=== PATIENT | male | born 1970 | race Caucasian/White ===

== ENCOUNTER 2016-05-01 18:05 | Inpatient (IN) ==
[2016-05-01 18:30] LABS: MANUAL DIFF NEEDED? NO
[2016-05-01 18:34] LABS: BASO% 0.2 % (0.0-0.8); EOS# 0.15 X1000 (0.0-0.7); EOS% 1.2 % (0.0-10.0); HEMATOCRIT 46.8 % (42.0-52.0); HEMOGLOBIN 16.1 g/dL (14.0-18.0); IMM GRAN# 0.04 X1000 (0.0-0.04); IMM GRAN% 0.3 % (0.0-0.5); LYMPH# 1.01 X1000 (1.2-3.4); LYMPH% 8.2 % (20.5-51.1); MCHC 34.4 g/dL (33-37); MCV 90.2 FL (81-99); MONO# 1.31 X1000 (0.11-0.59); MONO% 10.6 % (1.7-9.3); MPV 11.8 FL (7.4-10.4); NEUT% 79.5 % (42.2-75.2); PLT 209 X1000 (130-400); RBC 5.19 XMIL (4.7-6.1)
[2016-05-01 18:41] LABS: INR 1.01; PROTIME 10.7 Seconds (9.2-11.7)
[2016-05-01 18:43] LABS: PTT 42.4 Seconds (22.0-36.0)
[2016-05-01 18:57] LABS: AGAP 14; ALBUMIN 3.7 g/dL (3.5-5.0); ALKALINE PHOSPHATASE 158 U/L (32-122); BUN 10 mg/dL (8-22); CALCIUM 8.7 mg/dL (8.8-10.2); CHLORIDE 99 mmol/L (98-107); CK PROFILE 23 U/L (24-204); COSMO 275; GOT 93 U/L (10-34); GPT 314 U/L (10-44); MAGNESIUM 2.1 mg/dL (1.5-2.7); POTASSIUM 3.4 mmol/L (3.5-5.1); SODIUM 137 mmol/L (136-145); TCO2 24 mmol/L (25-35); TOTAL BILIRUBIN 4.39 mg/dL (0.20-1.00); TOTAL PROTEIN 7.3 g/dL (6.3-8.3)
--- NOTE | 2016-05-01 19:59 | PROVIDER DOCUMENTATION ---
HPI-General Adult <Bob DengSondra - Last Filed: 05/01/16 23:14> - General Source: patient - History of Present Illness -Gen Adult Nature of Presenting Problems: 46 year old M presents to the ED with a cc of fever, body aches, jaundice, cough , and congestion x1 week. Pt also c/o minimal shortness of breath. PT states that he has not been seen by anyones. 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 Location of Pain/Injury: reports: generalized Pain Radiation: reports: no radiation Quality of Pain: reports: aching Severity: reports: mild Onset/Duration: reports: 1 week ago Timing: reports: still present Context/Activities at Onset: reports: none Modifying Factors: improves with: nothing Associated Symptoms: reports: cough, muscle aches, sinus congestion/drainage, shortness of breath <Stephanie Drake - Last Filed: 05/02/16 01:08> - General Chief Complaint: Shortness of Breath Stated Complaint: FEVER, SOB Time Seen by Provider: 05/01/16 19:23 Allergies/Adverse Reactions: Patient Allergies Allergy/AdvReac Type Severity Reaction Status Date / Time No Known Allergies Allergy Verified 05/01/16 20:59 Home Medications: Home Medication List Medication Instructions Recorded Confirmed Last Taken Type Hydrocodone/APAP 10 mg/325 mg 0.5 tab PO DAILY 05/01/16 05/01/16 05/01/16 08:00 History [[place]-10] Loratadine/Pse E.r. 24 Hr 1 tab PO DAILY 05/01/16 05/01/16 05/01/16 08:00 History [[place]-D 24 Hr] Omeprazole [Prilosec] 20 mg PO DAILY 05/01/16 05/01/16 05/01/16 08:00 History Review of Systems - Adult - REVIEW OF SYSTEMS - ADULT Constitutional: reports: chills, fever Eyes: reports: no symptoms reported Ears, Nose, Mouth & Throat: reports: sinus problem. denies: ear pain, throat pain Cardiovascular: denies: chest pain, palpitations Respiratory: reports: cough. denies: shortness of breath Gastrointestinal: denies: nausea, vomiting Genitourinary: reports: no symptoms reported Musculoskeletal: reports: muscle aches. denies: muscle weakness Integumentary: denies: skin sores/ulcer, skin thickening Neurological: reports: no symptoms reported Psychiatric: reports: no symptoms reported Endocrine: reports: no symptoms reported Hematologic/Lymphatic: reports: no symptoms reported Allergic/Immunologic: reports: no symptoms reported All Other Systems: Reviewed and Negative <VidalStephanie - Last Filed: 05/02/16 01:08> Past History - Adult - PAST MEDICAL HISTORY-ADULT Review of Records: reports: Nursing Assessment Review, Medications Reviewed Major Childhood Illnesses: reports: denies history Other Conditions: reports: other cancer (skin) - PRIOR SURGERIES/PROCEDURES Surgical/Procedure History: reports: none - IMMUNIZATION STATUS Childhood Immunizations: See Nurse Assessment Flu Vaccine: See Nurse Assessment - SOCIAL HISTORY Smoking: non-smoker Substance Use: none/never Alcohol Use Frequency: occasionally (socially) <Stephanie Drake - Last Filed: 05/02/16 01:08> Physical Exam-General - PHYSICAL EXAM-ADULT Initial Vital Signs Reviewed: Yes - CONSTITUTIONAL General Appearance: alert - EYES Eyes: scleral icterus - HEAD, EARS, NOSE, MOUTH & THROAT HENMT: other (swelling of submadibular glands) - RESPIRATORY Respiratory: chest non-tender, lungs clear, normal breath sounds - CARDIOVASCULAR Cardiovascular: normal peripheral pulses, regular rate, rhythm, no edema - GASTROINTESTINAL (ABDOMEN) Abdominal Exam: normal bowel sounds, tenderness (RUQ), hepatomegaly. negative: spleenomegaly - MUSCULOSKELETAL Back Exam: normal inspection, no CVA tenderness, no vertebral tenderness Extremity: normal inspection, no pedal edema - SKIN Integumentary: jaundice, other (telangia ectasia to chest) - PSYCHIATRIC Psych/Mental Status: normal mood/affect, normal thought content, normal thought process, oriented x 3 <VidalStephanie - Last Filed: 05/02/16 01:08> Progress - PLAN OF CARE/RESULTS Progress/Plan/Lab Results: plan of care: labs, fluids, EKG, imaging Orders Category Date Time Status CHEST-2 VIEWS [RAD] Stat Exams 05/01/16 18:[address] ABD/PELVIS W/ IV CONT ONLY [CT] Stat Exams 05/01/16 19:53 Draft BLOOD CULTURE [BLDCUL] Stat Lab 05/01/16 22:35 Results CBC WITH ELECTRONIC DIFF [HEME] Stat Lab 05/01/16 18:22 Completed CK PROFILE [SP CHEM] Stat Lab 05/01/16 18:22 Completed COMPREHENSIVE METABOLIC PANEL [CHEM] Stat Lab 05/01/16 18:22 Completed D-DIMER [CHEM] Stat Lab 05/01/16 18:22 Completed MAGNESIUM [CHEM] Stat Lab 05/01/16 18:22 Completed PRO B-NATRIURETIC PEPTIDE Stat Lab 05/01/16 18:22 Completed PROTIME WITH INR [COAG] Stat Lab 05/01/16 18:22 Completed PTT [COAG] Stat Lab 05/01/16 18:22 Completed TROPONIN T Stat Lab 05/01/16 18:22 Completed UA NIMS W/REFLEX CULT [URINALYSIS] Stat Lab 05/01/16 20:31 Completed URINE CULTURE [RM] Routine Lab 05/01/16 21:00 Received 0.9% Sodium Chloride Inj [Ns] 1,000 ml Med 05/01/16 22:45 Active IV 250 mls/hr EKG [EKG] Stat Ther 05/01/16 18:12 Ordered Laboratory Tests 05/01/16 05/01/16 05/01/16 18:22 18:22 18:22 WBC 12.36 H RBC 5.19 Hgb 16.1 Hct 46.8 MCV 90.2 MCH 31.0 MCHC 34.4 RDW Std Deviation 13.5 Plt Count 209 MPV 11.8 H Immature Gran % (Auto) 0.3 Neut % (Auto) 79.5 H Lymph % (Auto) 8.2 L [place] % (Auto) 10.6 H Eos % (Auto) 1.2 Baso % (Auto) 0.2 Immature Gran # (Auto) 0.04 Neut # (Auto) 9.82 H Lymph # (Auto) 1.01 L [place] # (Auto) 1.31 H Eos # (Auto) 0.15 Baso # (Auto) 0.03 PT INR PTT (Actin FS) D-Dimer 1.50 H Sodium 137 Potassium 3.4 L Chloride 99 Carbon Dioxide 24 L Anion Gap 14 BUN 10 Creatinine 0.8 Estimated GFR/1.73 m2 > 60 BUN/Creatinine Ratio 13 Glucose 132 H Calculated Osmolality 275 Calcium 8.7 L Magnesium 2.1 Total Bilirubin 4.39 H AST 93 H ALT 314 H Alkaline Phosphatase 158 H Creatine Kinase 23 L Troponin T Hif-I-Ndkldpclaip Pept Total Protein 7.3 Albumin 3.7 Globulin 3.6 Albumin/Globulin Ratio 1.0 Urine Source Urine Color Urine Turbidity Urine pH Ur Specific [place] Urine Protein Ur Glucose (Stick) Ur Ketones (Stick) Urine Blood Urine Nitrite Urine Bilirubin Urobilinogen Dipstick Urine Leukocytes Urine WBC (Auto) Urine RBC (Auto) U Epithel Cells (Auto) Urine Bacteria (Auto) 05/01/16 05/01/16 05/01/16 18:22 18:22 18:22 WBC RBC Hgb Hct MCV MCH MCHC RDW Std Deviation Plt Count MPV Immature Gran % (Auto) Neut % (Auto) Lymph % (Auto) [place] % (Auto) Eos % (Auto) Baso % (Auto) Immature Gran # (Auto) Neut # (Auto) Lymph # (Auto) [place] # (Auto) Eos # (Auto) Baso # (Auto) PT 10.7 INR 1.01 PTT (Actin FS) 42.4 H D-Dimer Sodium Potassium Chloride Carbon Dioxide Anion Gap BUN Creatinine Estimated GFR/1.73 m2 BUN/Creatinine Ratio Glucose Calculated Osmolality Calcium Magnesium Total Bilirubin AST ALT Alkaline Phosphatase Creatine Kinase Troponin T < 0.010 Hiy-G-Mzffremfkoy Pept 112 Total Protein Albumin Globulin Albumin/Globulin Ratio Urine Source Urine Color Urine Turbidity Urine pH Ur Specific [place] Urine Protein Ur Glucose (Stick) Ur Ketones (Stick) Urine Blood Urine Nitrite Urine Bilirubin Urobilinogen Dipstick Urine Leukocytes Urine WBC (Auto) Urine RBC (Auto) U Epithel Cells (Auto) Urine Bacteria (Auto) 05/01/16 20:31 WBC RBC Hgb Hct MCV MCH MCHC RDW Std Deviation Plt Count MPV Immature Gran % (Auto) Neut % (Auto) Lymph % (Auto) [place] % (Auto) Eos % (Auto) Baso % (Auto) Immature Gran # (Auto) Neut # (Auto) Lymph # (Auto) [place] # (Auto) Eos # (Auto) Baso # (Auto) PT INR PTT (Actin FS) D-Dimer Sodium Potassium Chloride Carbon Dioxide Anion Gap BUN Creatinine Estimated GFR/1.73 m2 BUN/Creatinine Ratio Glucose Calculated Osmolality Calcium Magnesium Total Bilirubin AST ALT Alkaline Phosphatase Creatine Kinase Troponin T Nap-Q-Wneiznhnrdv Pept Total Protein Albumin Globulin Albumin/Globulin Ratio Urine Source CLEAN CATCH Urine Color YELLOW Urine Turbidity CLEAR Urine pH 6.5 Ur Specific [place] 1.015 Urine Protein 50 A Ur Glucose (Stick) NEGATIVE Ur Ketones (Stick) NEGATIVE Urine Blood NEGATIVE Urine Nitrite NEGATIVE Urine Bilirubin MODERATE A Urobilinogen Dipstick 4 A Urine Leukocytes SMALL A Urine WBC (Auto) 10-20 A Urine RBC (Auto) <10 U Epithel Cells (Auto) <10 Urine Bacteria (Auto) NEGATIVE Vital Signs - 24 hr 05/01/16 05/01/16 05/01/16 18:11 20:49 21:00 Temperature 100.1 F H Pulse Rate 97 H 92 H 86 Respiratory 18 22 18 Rate Blood Pressure 117/73 105/77 117/76 O2 Sat by Pulse 100 97 96 Oximetry 05/01/16 22:25 Temperature Pulse Rate 91 H Respiratory 17 Rate Blood Pressure 92/54 O2 Sat by Pulse 98 Oximetry Pt given results and will be d/c home w/o rx to follow up with PCP. Pt verbally understood instructions. PT remained clinically stable throughout the course of the ED stay and will return if symptoms worsen. - EKG 1 Time of EKG reading by physician:: 18:17 EKG Read and Signed by:: Bob Deng EKG Interpretation (*Must complete 3 of following elements*): Normal Rate: 93 Rhythm: NSR [place]: normal - XRAY 1 XRAY Study: Chest Impression: Abnormal XRAY Interpretation: basilar atelectasis, minimal cardiomegally: Dr. Deng- ER MD - CT/MRI 1 CT Study: Abdomen, Pelvis Impression: Abnormal (Stones and polyps within the gallbladder. Questionable mild adjacent inflammation. Normal CBD. Normal pancreas. Mildly fatty liver. No bowel obstruction. No abscess. No hydronephrosis. Small scattered mesenteric nodes.: Dr. Vasquez- radiologist.) - CONSULTS/PCP/HOSPITALIST Notification #1 *Consult/PCP/Hospitalist*: Dr. Corbin- hospitalist DMM Time Discussed: 22:33 Consult Disposition: Will see in ED, Admit <Stephanie Drake - Last Filed: 05/02/16 01:08> Departure - Departure Time of Disposition Order: 23:10 Certified Medical Emergency: Emergent <Bob Deng - Last Filed: 05/01/16 23:14> <Stephanie Drake - Last Filed: 05/02/16 01:08> - Departure DIAGNOSIS: Hepatitis Disposition: ADMITTED INPATIENT 09 Condition: Fair Referrals: None,PCP [Primary Care Provider] - Attestation - Scribe Verification/Attestation Scribe:: Stephanie Drake Acting as Scribe for:: Bob Deng Scribe documention review:: This chart was documented by a scribe and accurately reflects the service the provider performed and the decisions made by the provider. <Stephanie Drake - Last Filed: 05/02/16 01:08> Physician Attestation - Physician Attestation I, the provider, attest to the following statement:: Bob Deng Physician documentation Attestation:: This documentation recorded by the scribe accurately reflects the service I personally performed and the decisions made by me. <Stephanie Drake - Last Filed: 05/02/16 01:08>
[2016-05-01 20:50] LABS: URINE MICRO REVIEW NEEDED? NO; URINE SOURCE CLEAN CATCH
[2016-05-01 20:56] LABS: BILIRUBIN URINE MODERATE (NEGATIVE); BLOOD URINE NEGATIVE (NEGATIVE); COLOR YELLOW; GLUCOSE URINE NEGATIVE (NEGATIVE); LEUKOCYTES URINE SMALL (NEGATIVE); NITRITE URINE NEGATIVE (NEGATIVE); PH URINE 6.5; PROTEIN URINE 50 mg/dL (NEGATIVE); SP GRAVITY URINE 1.015; TURBIDITY URINE CLEAR (CLEAR); UR EPITHELIAL CELLS <10 /HPF (<10); URINE BACTERIA NEGATIVE /HPF; URINE CULTURE NEEDED? YES; URINE RBC <10 /HPF (<10); UROBILINOGEN URINE 4 mg/dL (NORMAL)
[2016-05-01] MEDS ORDERED: NS 1,000 ML IV SCH (22:45)
--- NOTE | 2016-05-02 01:00 | Diag Imaging Result Document ---
PROCEDURE NAME: CT ABD/PELVIS W/ IV CONT ONLY - 05/01/2016 STUDY: CT abdomen and pelvis with intravenous contrast. PROTOCOL: Dose reduction protocol. COMPARISON: No comparison films. There is atelectasis in the lung bases. No effusions. Normal spleen and adrenal glands. There is mild fatty infiltration of the liver. No hepatic mass identified. There are several gallbladder polyps in addition to at least calcified gallstone measuring 6 mm. Questionable mild adjacent inflammation. The common bile duct is not dilated. No inflammation about the pancreas. No pancreatic mass identified. Normal adrenal glands. Normal enhancement of the kidneys. No hydronephrosis. Normal aorta. There are small scattered mesenteric lymph nodes. No bowel obstruction. Normal appendix. No abscess. The urinary bladder is moderately distended. The prostate is not enlarged. IMPRESSION: 1. Gallstones and polyps with questionable adjacent inflammation. 2. Fatty infiltration of the liver. 3. Small scattered mesenteric nodes. A preliminary report was given at 10:07 p.m.
[2016-05-02] MEDS ORDERED: ROCEPHIN 1 GM/NS 50 ML IV SCH (02:27)
[2016-05-02] MEDS ORDERED: MOTRIN PO ONE ×2 (02:30→10:14)
[2016-05-02] MEDS: MORPHINE IV PRN ×4 (02:35→23:50)
[2016-05-02] MEDS: ZOFRAN IV PRN ×4 (02:45→23:50)
[2016-05-02] MEDS: TUSSIONEX LIQUID PO PRN ×2 (02:45→21:20)
[2016-05-02] MEDS: NS 1,000 ML IV SCH ×3 (03:10→23:40)
--- NOTE | 2016-05-02 06:12 | HISTORY AND PHYSICAL ---
CHIEF COMPLAINT: Fever and diarrhea for the past 5 days. HISTORY OF PRESENTING ILLNESS: A 46-year-old male without any significant past medical history presents to the emergency department with a 5 day history of having fever and diarrhea. He states that he was also coughing and it was not productive and he did not feel well. Over the past several days it seemed to be worsening. He was getting more congested and subsequently had come to emergency department. In the ER, he was evaluated. The routine labs done which did show that he had abnormal LFTs, and due to his presenting symptoms, it was thought that he would need hospitalization for further management. At the time of my examination, he had denied any headache, chest pain, shortness of breath, hemoptysis, melena, or weight changes but complained of having fever, chills, and not feeling well. PAST MEDICAL HISTORY: None. PAST SURGICAL HISTORY: None. ALLERGIES: No known drug allergies. CURRENT MEDICATIONS: None. SOCIAL HISTORY: Denies any history of smoking, admits to social alcohol use. Denies any illicit drug use. FAMILY HISTORY: No history of coronary disease. REVIEW OF SYSTEMS: Twelve point review of systems is as in HPI. Other systems negative. PHYSICAL EXAMINATION: GENERAL: Cooperative, friendly male. He is resting more comfortably now. VITAL SIGNS: Temperature 100.1 degrees, pulse 97, respiration 18, blood pressure 117/73. HEENT: Atraumatic, normocephalic. Extraocular movements intact. PERRLA. There is some mild scleral icterus. NECK: No masses. CHEST: Clear to auscultation. CARDIOVASCULAR: Regular rate and rhythm. ABDOMEN: Soft. Positive bowel sounds. EXTREMITIES: No edema. NEUROLOGIC: He is awake, alert, oriented x3. : No bladder distention. SKIN: Warm. LABORATORIES AND STUDIES: Sodium 137, potassium 3.4, chloride 99, CO2 24, BUN is 10, creatinine 0.8, glucose is 132, AST 93, ALT 314, alkaline phosphatase 158. ASSESSMENT: A 46-year-old male without any significant past medical history present to our emergency department with 5 days history of having fever and diarrhea and not feeling well. He seemed to have normal LFTs on laboratory. Patient will need hospitalization for further management. 1. Fever. 2. Suspected viral syndrome 3. Abnormal LFTs. Probable hepatitis. 4. Cholelithiasis. Unclear if there is adjacent inflammation. PLAN: 1. We will admit patient to medical floor with telemetry. 2. We will check blood cultures. Start patient on empiric antibiotics. 3. Continue supportive care with IV fluids, antiemetics and pain control. 4. Check a hepatitis profile and abdominal ultrasound. 5. We will put patient on DVT prophylaxis with SCDs. 6. We will continue to follow and reassess.
--- NOTE | 2016-05-02 07:38 | Diag Imaging Result Document ---
PROCEDURE NAME: CHEST-2 VIEWS - 05/01/2016 FRONTAL AND LATERAL CHEST, TWO VIEWS: COMPARISON: 02/20/2015. FINDINGS: Mild increased markings in the lower lungs believed to be atelectasis. The heart is not enlarged. The vessels are not distended. No pleural effusions. No consolidation. IMPRESSION: Basilar atelectasis.
--- NOTE | 2016-05-02 07:43 | EKG Report ---
Test Performed on : 05/01/2016 6:17:29 PM Test Reason : Chest Pain Blood Pressure : / mmHG Vent. Rate : 093 BPM Atrial Rate : 093 BPM P-R Int : 114 ms QRS Dur : 078 ms QT Int : 332 ms P-R-T Axes : 028 -04 015 degrees QTc Int : 412 ms Normal sinus rhythm. Normal ECG When compared with ECG of 20-FEB-2015 17:31, No significant change was found Unconfirmed Result
--- NOTE | 2016-05-02 08:44 | Diag Imaging Result Document ---
PROCEDURE NAME: US ABDOMEN-COMPLETE - 05/02/2016 COMPLETE ABDOMINAL ULTRASOUND: COMPARISON: None available. FINDINGS: There are a few shadowing stones in the gallbladder lumen as well as some non-shadowing sludge. There is a large non-shadowing echogenic focus adherent to the gallbladder wall that measures up to 1 cm and appears to represent a large gallbladder polyp. The gallbladder wall is somewhat thickened measuring up to 6 mm in thickness. No pericholecystic fluid is identified. The common bile duct is normal in diameter. Sonographic Interiano's sign was reported to be negative. The liver is grossly normal in echotexture with no discrete hepatic mass identified. The visualized pancreas and spleen are unremarkable. The distal aorta is obscured due to bowel gas. The remainder of the aorta as well as the IVC are grossly unremarkable. The kidneys are grossly unremarkable. IMPRESSION: 1. A few gallstones and mild gallbladder wall thickening but no pericholecystic fluid and a reported negative sonographic Interiano's sign. Correlate clinically to exclude cholecystitis. 2. Suggestion of gallbladder wall polyps with the largest measuring up to 1 cm. Note that polyps this large are usually an indication for cholecystectomy given the increased risk of malignancy. [facility]
[2016-05-02] MEDS: TESSALON PO SCH ×3 (09:59→23:40)
[2016-05-02 10:08] LABS: MANUAL DIFF NEEDED? NO
[2016-05-02 10:23] LABS: BASO% 0.3 % (0.0-0.8); EOS# 0.16 X1000 (0.0-0.7); EOS% 1.5 % (0.0-10.0); HEMATOCRIT 43.1 % (42.0-52.0); HEMOGLOBIN 14.8 g/dL (14.0-18.0); IMM GRAN# 0.03 X1000 (0.0-0.04); IMM GRAN% 0.3 % (0.0-0.5); LYMPH# 0.73 X1000 (1.2-3.4); LYMPH% 6.9 % (20.5-51.1); MCH 31.4 PG (27-31); MCHC 34.3 g/dL (33-37); MCV 91.3 FL (81-99); MONO% 15.1 % (1.7-9.3); MPV 11.7 FL (7.4-10.4); NEUT% 75.9 % (42.2-75.2); PLT 167 X1000 (130-400); RBC 4.72 XMIL (4.7-6.1)
[2016-05-02 10:32] LABS: AGAP 12; ALBUMIN 3.2 g/dL (3.5-5.0); ALKALINE PHOSPHATASE 147 U/L (32-122); BUN 8 mg/dL (8-22); CALCIUM 8.1 mg/dL (8.8-10.2); CHLORIDE 100 mmol/L (98-107); COSMO 273; GOT 85 U/L (10-34); GPT 247 U/L (10-44); POTASSIUM 3.5 mmol/L (3.5-5.1); SODIUM 137 mmol/L (136-145); TCO2 25 mmol/L (25-35); TOTAL BILIRUBIN 4.34 mg/dL (0.20-1.00); TOTAL PROTEIN 6.4 g/dL (6.3-8.3)
[2016-05-02] MEDS: ZOSYN 3.375 GM/NS 50 ML IV SCH ×3 (10:38→23:40)
[2016-05-02] MEDS: DUONEB (A & A) INH PRN ×3 (15:36→23:02)
[2016-05-02] MEDS: TORADOL IV SCH (21:14)
[2016-05-03] MEDS: TORADOL IV SCH ×2 (03:36→09:53)
[2016-05-03] MEDS: ZOSYN 3.375 GM/NS 50 ML IV SCH ×4 (03:36→22:39)
[2016-05-03] MEDS: DUONEB (A & A) INH PRN ×6 (03:40→23:28)
[2016-05-03 07:41] LABS: MANUAL DIFF NEEDED? NO
[2016-05-03 07:47] LABS: BASO% 0.2 % (0.0-0.8); EOS# 0.04 X1000 (0.0-0.7); EOS% 0.4 % (0.0-10.0); HEMATOCRIT 40.6 % (42.0-52.0); HEMOGLOBIN 13.8 g/dL (14.0-18.0); IMM GRAN# 0.06 X1000 (0.0-0.04); IMM GRAN% 0.5 % (0.0-0.5); LYMPH# 1.04 X1000 (1.2-3.4); LYMPH% 9.4 % (20.5-51.1); MCH 31.1 PG (27-31); MCV 91.4 FL (81-99); MONO% 10.8 % (1.7-9.3); MPV 12.2 FL (7.4-10.4); NEUT% 78.7 % (42.2-75.2); PLT 177 X1000 (130-400); RBC 4.44 XMIL (4.7-6.1)
[2016-05-03 08:12] LABS: AGAP 15; ALKALINE PHOSPHATASE 146 U/L (32-122); BUN 9 mg/dL (8-22); CALCIUM 8.2 mg/dL (8.8-10.2); CHLORIDE 99 mmol/L (98-107); COSMO 276; GOT 82 U/L (10-34); GPT 227 U/L (10-44); POTASSIUM 3.3 mmol/L (3.5-5.1); SODIUM 138 mmol/L (136-145); TCO2 24 mmol/L (25-35); TOTAL BILIRUBIN 5.29 mg/dL (0.20-1.00); TOTAL PROTEIN 6.4 g/dL (6.3-8.3)
[2016-05-03] MEDS ORDERED: FLUZONE QUAD 2016-2017 SYRINGE IM ONE (09:00)
[2016-05-03] MEDS: TESSALON PO SCH ×3 (09:53→22:38)
[2016-05-03] MEDS: NS 1,000 ML IV SCH ×2 (12:09→22:48)
[2016-05-03 13:35] LABS: HEPATITIS PROFILE ACUTE SEE COMMENTS (())
--- NOTE | 2016-05-03 14:15 | PROGRESS NOTE ---
DATE: 05/03/2016 SUBJECTIVE: This patient states that he is feeling about the same. He is still complaining of chills. He is still having fever and generalized weakness. He is complaining of mild abdominal pain, mostly epigastric and right upper quadrant. Family members at the bedside. OBJECTIVE: Vital Signs: Pulse 91, respiratory rate 16, blood pressure 104/64, oxygen saturation 92 on room air. HEENT: Head normocephalic. No trauma. PERRLA. Icteric sclerae. Skin: Jaundiced. Neck: Supple. No JVD. No masses. Central trachea. Chest: Clear to auscultation. No wheezing. No rales. Cardiovascular: RRR. No murmurs. Abdomen: Soft, mild tenderness to palpation epigastric and right upper quadrant. Positive bowel sounds. Extremities: No edema. No clubbing. No cyanosis. Neurological examination: Patient is alert and oriented x3. No focal neurological deficits. LABORATORY: WBC 11, hemoglobin 13.8, hematocrit 40.6, platelets 177. Sodium 138, potassium 3.3, chloride 99, bicarbonate 24, BUN 9, creatinine 0.9, glucose 121, calcium 8.2. Total bilirubin 5.2, AST 82, ALT 227, alkaline phosphatase 146, albumin 3. ASSESSMENT AND PLAN: 1. Jaundice, likely related to obstructive jaundice. We have an ultrasound of the abdomen that showed gallstones and mild gallbladder wall thickening, but not pericholecystic fluid. No amorphous sign. Also, there are gallbladder wall polyps with the largest measuring around 1 cm. Gastroenterology has been consulted and also Surgery Department has been consulted today. This patient has been having fever. We will continue with the intravenous hydration. This patient is also tolerating oral. 2. He has an elevated liver function tests. We are going to go ahead and wait for the results of the hepatitis profile as well.
[2016-05-03] MEDS: MORPHINE IV PRN ×2 (15:01→22:39)
[2016-05-03] MEDS: ZOFRAN IV PRN ×2 (15:02→22:49)
--- NOTE | 2016-05-03 15:39 | CONSULTATION ---
DATE OF CONSULTATION: 05/03/2016 PRIMARY CARE DOCTOR: None. REASON FOR CONSULTATION: Elevated liver enzymes and jaundice. Mr. Ang is a 46-year-old male, who was admitted on 05/02/2016 with new onset of epigastric pain, reflux, yellowish discoloration of his eyes, elevated liver enzymes, jaundice and change in color of his urine. On admission, his jaundice was noted. His total bilirubin was around 5. His liver enzymes were also noted to be elevated. He had imaging done, a CT and ultrasound which showed evidence of gallstones. His hepatitis panel was tested which just came back as negative. He denies any history of recent use of herbal or [place] products or any prior history of liver disease or any family history of liver disease. He complains of discomfort in the epigastric region which worsens after eating. He denies any history of NSAIDs or vomiting, nausea or vomiting blood or passing blood in the stools. PAST MEDICAL HISTORY: None. PAST SURGICAL HISTORY: None. ALLERGIES: No known drug allergies. MEDICATIONS AT HOME: None. SOCIAL HISTORY: Denies alcohol, tobacco illicit drugs. He is . His is at bedside and very supportive. FAMILY HISTORY: No history of liver disease. REVIEW OF SYSTEMS: Denies any fevers, rigors, or chills, chest pain, shortness of breath, dyspnea. Denies any genitourinary complaints. Denies any history of vomiting or passing blood in the stools. Does have history of reflux disease. MEDICATIONS IN THE HOSPITAL INCLUDE: Morphine, Zofran, hydrocodone/chlorphen polis liquid 5 mL p.o. q.12 hours as needed, DuoNeb inhaler every 4 hours, IV fluids 100 mL/hour, Tessalon 200 mg p.o. 3 times daily, Zosyn IV q.6, Protonix IV 24 hours. He is currently on GI soft diet. PHYSICAL EXAMINATION: Vital signs: Temperature 99 degrees, pulse rate of 91, respiratory rate 16, blood pressure of 104/64, saturating 91% on room air. His T-max was 102 yesterday morning. General: Moderately well-nourished, lying in bed, in no acute distress. HEENT: Icteric sclerae. No pallor. Pupils equal, reactive to light. Neck: Supple. Chest: Decreased breath sounds. Cardiac: Regular rhythm. No murmur. Abdomen: Mild discomfort. Appears no rebound or guarding. Bowel sounds are hypoactive. No rebound. Extremities: No cyanosis, clubbing, edema. Neurologic: He is alert, awake, oriented. LABS: Hemoglobin and hematocrit 13.8 and 40.6, white count 11.06, platelet count of 177,000. MCV of 91.4. Sodium 138, potassium 3.6, chloride 99, bicarb 24, anion gap 15. BUN of 9, creatinine 0.9, glucose 131, calcium is 8.2. Total bilirubin is 5.29. AST 82, ALT 227, alkaline phosphatase is 146. Troponin less than 0.01. Total protein 6.4, albumin of 3. Coagulation studies: INR 1.01. PT of 42.4. Urinalysis showing moderate bilirubin, and some protein. Hepatitis panel is nonreactive. His ultrasound of the abdomen done on 05/02/2016 which showed evidence of 2 gallstones and mild gallbladder wall thickening, but no pericholecystic fluid. Gallbladder wall polyps with the largest measuring 1 cm. This could be an indication for potential cholecystectomy given the size of the polyp and given increased risk of malignancy. He had a CT scan of the abdomen and pelvis on 05/01/2016 which showed gallstones, polyps with questionable adjacent inflammation, fatty infiltration of the liver, small scattered mesenteric nodes. IMPRESSION/PLAN: 1. Elevated liver enzymes, fever, jaundice and imaging data suggesting cholecystitis. 2. Gallbladder polyps measuring more than 1 cm. 3. Fatty liver disease. 4. Epigastric pain. 5. Reflux disease. RECOMMENDATIONS: 1. We will avoid any NSAIDs. We will switch him to liquid diet now. We will call a Surgical consult for potential cholecystectomy. Will order HIDA scan. 2. Avoid any hepatotoxic drugs. The patient will need blood cultures which has already been drawn and they have been negative so far. 3. We will keep him on GI prophylaxis, Protonix once daily. 4. We will follow the liver enzymes. The above findings discussed with the patient and family.
[2016-05-03] MEDS ORDERED: MOTRIN PO ONE (17:06)
[2016-05-03] MEDS: SODIUM CHLORIDE 0.9% INJ SCH (17:24)
[2016-05-03] MEDS: PROTONIX IV SCH (17:26)
--- NOTE | 2016-05-03 23:18 | CONSULTATION ---
DATE OF CONSULTATION: 05/03/2016 HISTORY OF PRESENT ILLNESS: Mr. Jonah Ang is a 46-year-old white male, who is admitted to [facility] on 05/01/2016 through our emergency department. A CT scan was performed as part of his evaluation, because he was complaining of epigastric abdominal pain and it documented gallstones with questionable adjacent inflammation. Also fatty infiltration of the liver. He was admitted by our hospitalists. He underwent an abdominal ultrasound yesterday which also documented gallstones. We were asked to see him today because of possible jaundice, epigastric abdominal pain, fever and gallstones. PAST MEDICAL HISTORY: None. PAST SURGICAL HISTORY: None. ALLERGIES: No known drug allergies. MEDICATIONS: None. SOCIAL HISTORY: No smoking. He uses alcohol socially. His is a certified nursing assistant instructor. FAMILY HISTORY: Noncontributory. REVIEW OF SYSTEMS: A 14-point review of systems was performed and was essentially negative except for the history of present illness. PHYSICAL EXAMINATION: General: Mr. Ang is a middle aged, white male of good weight. He is in no acute distress. He is pleasant, cooperative. He does appear to have jaundice. He has no oral lesions. He has no cervical or supraclavicular lymphadenopathy. Heart: Regular rate. Lungs: Clear to auscultation and percussion bilaterally. Abdomen: He is tender in the epigastrium and right upper quadrant, but I could not palpate a mass. He has no previous incisions. He has no hernia, no costovertebral tenderness. Rectal: Not performed. He does have palpable peripheral pulses. No peripheral edema. Neurological: He is alert and oriented x3 and appropriate. PERTINENT DATA: His CT scan and ultrasound of his abdomen suggests gallstones and possible acute cholecystitis. He has elevated liver function tests, a total bilirubin of 5.29. His alkaline phosphatase is 146 and his AST and ALT are elevated also. Hepatitis panel is pending. His coagulation studies are satisfactory. His white blood cell count is 11. Hematocrit is 40. PLAN: Laparoscopic cholecystectomy tomorrow. I have discussed the procedure in detail with the patient and his at the bedside including risks of bleeding, infection, injury to the extrahepatic bile ducts requiring reoperation, conversion of laparoscopic to open cholecystectomy, bile leak requiring reoperation for drainage, and injury to intra-abdominal contents for trocar placement. He understands the need for surgery and its risks and he wants to proceed. We also discussed the possible need for endoscopic retrograde cholangiopancreatography.
[2016-05-04] MEDS: TYLENOL PR PRN ×2 (04:09→10:53)
[2016-05-04] MEDS: ZOSYN 3.375 GM/NS 50 ML IV SCH ×4 (04:35→21:14)
[2016-05-04] MEDS: NS 1,000 ML IV SCH (06:26)
[2016-05-04 07:21] LABS: BASO% 0.3 % (0.0-0.8); EOS# 0.13 X1000 (0.0-0.7); EOS% 0.8 % (0.0-10.0); HEMATOCRIT 39.4 % (42.0-52.0); HEMOGLOBIN 13.4 g/dL (14.0-18.0); IMM GRAN# 0.12 X1000 (0.0-0.04); IMM GRAN% 0.8 % (0.0-0.5); LYMPH# 0.86 X1000 (1.2-3.4); LYMPH% 5.6 % (20.5-51.1); MANUAL DIFF NEEDED? YES; MCH 30.5 PG (27-31); MCV 89.5 FL (81-99); MONO% 11.1 % (1.7-9.3); MPV 11.4 FL (7.4-10.4); NEUT% 81.4 % (42.2-75.2); PLT 198 X1000 (130-400)
[2016-05-04 07:25] LABS: HEMOGLOBIN A1C 5.1 % (4.8-6.0)
[2016-05-04 07:28] LABS: AGAP 15; ALBUMIN 2.8 g/dL (3.5-5.0); ALKALINE PHOSPHATASE 137 U/L (32-122); BUN 7 mg/dL (8-22); CALCIUM 8.3 mg/dL (8.8-10.2); CHLORIDE 102 mmol/L (98-107); COSMO 278; GOT 89 U/L (10-34); GPT 210 U/L (10-44); SODIUM 140 mmol/L (136-145); TCO2 23 mmol/L (25-35); TOTAL PROTEIN 6.1 g/dL (6.3-8.3)
[2016-05-04 07:45] LABS: BANDS 6 % (0-1); MONO 4 % (1-9)
--- NOTE | 2016-05-04 09:38 | Diag Imaging Result Document ---
PROCEDURE NAME: HIDA SCAN W/ EJECTION FRACTION - 05/03/2016 HEPATOBILIARY SCAN WITH EJECTION FRACTION: FINDINGS: The patient was injected with 5.6 mCi technetium-99m Choletec and there is activity seen in the duodenum by 23 minutes. There is never identifiable activity in the gallbladder at 90 minutes. IMPRESSION: The possibility of acute cholecystitis cannot be excluded. The findings were discussed with Dr. Figueroa by telephone at 0925 hours.
[2016-05-04] MEDS: TESSALON PO SCH ×3 (10:54→21:13)
[2016-05-04] MEDS: SODIUM CHLORIDE 0.9% INJ SCH (10:54)
[2016-05-04] MEDS: DUONEB (A & A) INH PRN ×4 (11:36→23:19)
--- NOTE | 2016-05-04 11:45 | PROGRESS NOTE ---
DATE: 05/04/2016 SUBJECTIVE: Patient currently resting in bed. He came back from HIDA scan yesterday and HIDA scan showed no identified activity in the gallbladder at 90 minutes suggesting acute cholecystitis. He is on schedule for OR today with Dr. Yoder for cholecystectomy. Vital Signs: Temperature of 100.7, pulse rate of 106, respiratory rate 18, blood pressure 104/55, saturating 92% on room air. General Appearance: Moderately nourished, lying in bed, in no acute distress. HEENT: No pallor. Icteric sclerae. Neck: Supple. Abdomen: Discomfort in the epigastric region. No rebound, no guarding. Bowel sounds are hypoactive. No rebound. Extremities: No cyanosis, clubbing. Neurologic: He is alert, awake, oriented. LABS: Hemoglobin and hematocrit is 13.4 and 39.4, white count of 15.3, platelet count of 198,000. Sodium 140, potassium 3, chloride 102, bicarb 23, anion gap of 15, BUN of 7, creatinine 0.9. Glucose of 108. Calcium is 8.3. Total bilirubin is 6.8, AST 89, ALT 210, alkaline phosphatase is 137. Total protein 6.1, albumin of 2.8. INR 1.01. Urinalysis showing moderate bilirubin, serologies and hepatitis panel is nonreactive. IMPRESSION AND PLAN: 1. Acute cholecystitis and gallstone and gallbladder polyps. 2. Jaundice, elevated liver enzymes secondary to #1. 3. Fatty liver per imaging. 4. Reflux disease. RECOMMENDATIONS: Continue to be NPO. We will continue IV fluids, IV antibiotics, IV PPIs. He is scheduled for cholecystectomy today by Dr. Yoder. His hepatitis panel is negative. Further recommendations to follow pending the hospital course. We will be available if needed. Please avoid any hepatotoxic drugs.
[2016-05-04] MEDS: PROTONIX IV SCH (12:00)
--- NOTE | 2016-05-04 13:29 | PROGRESS NOTE ---
DATE: 05/04/2016 SUBJECTIVE: This patient is still complaining of abdominal discomfort, fever and chills. Also as he has been coughing mostly during the night. Today he is scheduled for surgery. This patient came in with obstructive jaundice and he will need a cholecystectomy. OBJECTIVE: Vital Signs: Temperature 100.7 degrees, pulse 88, respiratory rate 18, blood pressure 104/55, oxygen saturation 92 on room air. HEENT: Head normocephalic. No trauma. PERRLA. Neck: Supple. No JVD. No masses. Central trachea. Chest: Clear to auscultation. No wheezing. No rales. Abdomen: Soft. Mild tenderness to palpation epigastric and right upper quadrant area. Positive bowel sounds. Extremities: No edema. No clubbing. No cyanosis. Neurological: The patient is alert and oriented x3. No focal neurological deficits. LABORATORY: WBC 15.3, hemoglobin 13.4, hematocrit 39.4, platelet 198,000. Sodium 140, potassium 3, chloride 102, bicarbonate 23. BUN 7, creatinine 0.9. Glucose 108. Calcium 8.3. Total bilirubin 6.8, AST 89, ALT 210, alkaline phosphatase 137. Albumin 2.8. Hepatitis profile negative. ASSESSMENT AND PLAN: 1. Jaundice likely related to obstructive jaundice. Today he is scheduled for surgery. We will continue following the recommendations also from Gastroenterology Department. We will continue with the antibiotics and treatment. 2. Elevated liver function tests, likely related with #1. 3. Also he has been having fever and chills. We will continue with the antibiotics and fluids. 4. Cough. He is getting breathing treatment. We will continue with the same management and monitoring.
[2016-05-04] MEDS ORDERED: MARCAINE 0.25% PF/EPI 1:200,000 ONE (15:58)
[2016-05-04] MEDS ORDERED: LR 1,000 ML ONE (15:58)
[2016-05-04] MEDS ORDERED: SODIUM CHLORIDE 0.9% ONE (15:58)
[2016-05-04] MEDS: MORPHINE ONE ×3 (18:17→18:30)
[2016-05-04] MEDS ORDERED: DIPRIVAN 1% ONE (18:23)
[2016-05-04] MEDS ORDERED: FENTANYL ONE (18:23)
--- NOTE | 2016-05-04 20:03 | OPERATIVE NOTE ---
PROCEDURE DATE: 05/04/2016 PREOPERATIVE DIAGNOSIS: Acute cholecystitis with cholelithiasis and choledocholithiasis. POSTOPERATIVE DIAGNOSIS: Acute cholecystitis with cholelithiasis. PROCEDURE PERFORMED: Laparoscopic cholecystectomy with intraoperative cholangiogram. SURGEON: Saba Yoder MD ANESTHESIA: General, in addition to local anesthetic. ESTIMATED BLOOD LOSS: 25 mL. DRAINS: None. INDICATIONS: Jonah Ang is a 46-year-old white male who is otherwise healthy. He takes no medicines. He has never had surgery before. He presented through our emergency department on 05/02/2016 with upper abdominal discomfort and jaundice. His liver function tests were also elevated. CT scan of his abdomen and pelvis suggested gallstones with some inflammation around the gallbladder. This was confirmed with a gallbladder ultrasound and, because of his jaundice, we felt he could have not only gallstones but a stone could have passed into his common bile duct. Laparoscopic cholecystectomy with intraoperative cholangiogram was recommended. FINDINGS: The liver appeared to be healthy. The gallbladder was distended. He had some edema around it and it was inflamed. It had white bile within it and some gallstones. The cystic duct was short and thickened with inflammation. We did do an intraoperative cholangiogram, which showed no extrahepatic biliary dilatation. There was free flow of the dye into the duodenum. There was no evidence of obstruction involving the extrahepatic bile ducts. They were not enlarged and there was no stone visible on our cholangiogram, so we were unsure of the reason for his jaundice and we decided at the end of the procedure to do a core needle biopsy of the right lobe of the liver. No other intraabdominal pathology was noted, and we felt we did this operation safely. DESCRIPTION OF PROCEDURE: The patient was brought to the operating room, placed supine, received general anesthesia, and was intubated. His abdomen was prepped and draped within the sterile field. We made a curvilinear incision below the umbilicus using a 15 blade scalpel. A Veress needle was introduced through this incision into the abdomen. A pneumoperitoneum was established. We placed an 11 mm trocar through this incision and then a camera was placed through this port, and the abdomen was explored for injury and there was none. Three other trocars were placed along the right costal margin under direct vision of the camera. We placed an 11 mm trocar just to the right of the midline and two 5 mm trocars in our midclavicular and anterior axillary lines. Through our most lateral port, the gallbladder was grasped retracted superiorly. It was distended but not so tightly that we could not grasp the fundus and retracted superiorly along with right lobe of the liver. Another grasper was used to grab the body of the gallbladder and the triangle of Calot was bluntly dissected. In the area of the triangle of Calot, it was inflamed and edematous. The lymph node in this area was slightly enlarged. We were able to dissect out the triangle of Calot and identified the cystic duct along its length. The cystic duct wall was thickened. We placed a large clip at the cystic duct-gallbladder junction. We made a small incision in the cystic duct using hook scissors and we used a Taut intraoperative cholangiogram catheter to perform the cholangiogram with the findings above. Once the cholangiogram was completed, we had to use 2 large clips to control this thickened cystic duct proximally. we divided the cystic duct between these large clips using hook scissors. The cystic artery was identified. A clip was placed distally and 2 proximally. It was divided using hook scissors. Spatula cautery was used to remove the gallbladder from the liver bed. We used an endobag to remove the gallbladder through our umbilical incision. We placed the trocar back through this incision and the area of operation was thoroughly inspected, irrigated, and the irrigation was removed with suction. There was no evidence of ongoing bleeding or bile leak. I used a spring- loaded core needle biopsy device through our most lateral port site to take a core needle biopsy of the right lobe of the liver. We controlled bleeding using the spatula cautery. All trocars were removed under direct vision of the camera. The pneumoperitoneum was allowed to dissipate. We used a [id number] 2-0 Vicryl stitch to reapproximate the fascia at the umbilicus and all skin was closed with 4-0 Monocryl subcuticular stitches. Dressings were applied. I opened the gallbladder at the end of the procedure and there was clear bile within it and there were a few small black gallstones. Plans are for him to go the recovery room and then return to the floor.
[2016-05-05] MEDS: ZOFRAN IV PRN ×3 (01:47→17:34)
[2016-05-05] MEDS: MORPHINE IV PRN ×3 (01:48→17:34)
[2016-05-05] MEDS: TYLENOL PR PRN ×2 (01:56→13:40)
[2016-05-05] MEDS: DUONEB (A & A) INH PRN ×5 (03:05→22:59)
[2016-05-05] MEDS ORDERED: MOTRIN LIQUID PO ONE ×3 (03:26→18:00)
[2016-05-05] MEDS: ZOSYN 3.375 GM/NS 50 ML IV SCH ×2 (03:38→09:35)
[2016-05-05] MEDS: NS 1,000 ML IV SCH ×5 (03:41→22:09)
--- NOTE | 2016-05-05 06:20 | EKG Report ---
Test Performed on : 05/05/2016 03:27:22 AM Test Reason : NO ORDER IN MUSE TO MATCH EKG Blood Pressure : / mmHG Vent. Rate : 128 BPM Atrial Rate : 128 BPM P-R Int : 116 ms QRS Dur : 076 ms QT Int : 256 ms P-R-T Axes : 035 010 031 degrees QTc Int : 373 ms Sinus tachycardia. Otherwise normal ECG When compared with ECG of 01-MAY-2016 18:17, (Unconfirmed) Nonspecific T wave abnormality now evident in Lateral leads Confirmed by Samantha COON, Varghese Sims ([id number]) on 05/05/2016 9:16:19 AM
[2016-05-05 07:27] LABS: BASO% 0.2 % (0.0-0.8); EOS# 0.08 X1000 (0.0-0.7); EOS% 0.4 % (0.0-10.0); HEMATOCRIT 38.4 % (42.0-52.0); HEMOGLOBIN 13.3 g/dL (14.0-18.0); IMM GRAN% 1.1 % (0.0-0.5); LYMPH# 1.01 X1000 (1.2-3.4); LYMPH% 5.6 % (20.5-51.1); MANUAL DIFF NEEDED? YES; MCHC 34.6 g/dL (33-37); MCV 89.5 FL (81-99); MONO# 1.47 X1000 (0.11-0.59); MONO% 8.1 % (1.7-9.3); MPV 11.6 FL (7.4-10.4); NEUT% 84.6 % (42.2-75.2); PLT 250 X1000 (130-400); RBC 4.29 XMIL (4.7-6.1)
[2016-05-05 07:39] LABS: AGAP 11; ALBUMIN 2.5 g/dL (3.5-5.0); ALKALINE PHOSPHATASE 128 U/L (32-122); BUN 10 mg/dL (8-22); CALCIUM 7.5 mg/dL (8.8-10.2); CHLORIDE 103 mmol/L (98-107); COSMO 279; GOT 73 U/L (10-34); GPT 164 U/L (10-44); POTASSIUM 2.9 mmol/L (3.5-5.1); SODIUM 140 mmol/L (136-145); TCO2 26 mmol/L (25-35); TOTAL BILIRUBIN 6.54 mg/dL (0.20-1.00); TOTAL PROTEIN 5.9 g/dL (6.3-8.3)
[2016-05-05 08:06] LABS: BANDS 2 % (0-1); LYMPHS 8 % (21-51); MONO 7 % (1-9)
--- NOTE | 2016-05-05 08:35 | Diag Imaging Result Document ---
PROCEDURE NAME: OPERATIVE CHOLANGIOGRAM - 05/04/2016 INTRAOPERATIVE CHOLANGIOGRAM: COMPARISON: None available. FINDINGS: Three spot fluoroscopic images of the opacified biliary system were provided, which was performed intraoperatively by Dr. Darryl Yoder. The common bile duct appears normal in caliber. No discrete stricture or filling defect is identified. Contrast is seen flowing normally into small bowel. IMPRESSION: As above. Please correlate with live fluoroscopic imaging. MTDD
[2016-05-05] MEDS ORDERED: SODIUM CHLORIDE 0.9% 10 ML ONE (08:47)
[2016-05-05] MEDS ORDERED: ROBINUL ONE (08:47)
[2016-05-05] MEDS ORDERED: NEOSTIGMINE ONE (08:47)
[2016-05-05] MEDS ORDERED: ZOFRAN ONE (08:47)
[2016-05-05] MEDS ORDERED: NORCURON ONE (08:47)
[2016-05-05] MEDS ORDERED: NS 1,000 ML ONE (08:48)
[2016-05-05] MEDS ORDERED: XYLOCAINE-MPF 2% ONE (08:48)
[2016-05-05] MEDS ORDERED: OFIRMEV 1000 MG/ISOTONIC SOLN 100 ML ONE (08:48)
[2016-05-05] MEDS ORDERED: QUELICIN (DOSE) ONE (08:48)
[2016-05-05] MEDS ORDERED: TORADOL IV PRN (09:00)
[2016-05-05] MEDS: TESSALON PO SCH ×3 (11:57→22:10)
[2016-05-05] MEDS: LEVAQUIN 750 MG/D5W 150 ML IV SCH (11:57)
--- NOTE | 2016-05-05 12:05 | PROGRESS NOTE ---
DATE: 05/05/2016 SUBJECTIVE: Mr. Ang is a 46-year-old white male who has never been hospitalized or had surgery. He presented to our emergency department on 05/01/2016 with a 1-week history of not feeling well. He described fever, body aches, and upper abdominal pain, and even several days of diarrhea. He was evaluated with CT scan of his abdomen and pelvis, which suggested gallstones and possibly some inflammation around his gallbladder. The extrahepatic bile ducts were reported as normal. He had no evidence of pancreatitis by CT scan or pancreatic mass. His liver function tests were elevated, with a total bilirubin of 4, and during his hospitalization that total bilirubin continued to rise. An ultrasound of his gallbladder was performed, which again documented gallstones, and we were asked to evaluate him. I felt that he probably had cholelithiasis with a stone in his common bile duct, but yesterday I removed his gallbladder, did a cholangiogram, and there was no evidence of obstruction of the extrahepatic bile ducts. There was no dilatation of the extrahepatic bile ducts. The gallbladder was inflamed. The liver appeared healthy except for fatty infiltration and we did take a liver biopsy. I remain unsure of the etiology of his symptoms, which continue to be fevers at night and elevated liver function tests without evidence of obstruction in the bile ducts. He is on IV Zosyn. He does have a rash involving his left arm, but not his whole body, and maybe we should consider changing his antibiotics. He states that he feels congested in his chest and we will order another chest x- ray. All his trocar sites are intact and I think intra-abdominally there is no evidence of any problems with his surgery. He has been n.p.o. in anticipation of an ERCP, but I am not sure that an ERCP is necessary with my intraoperative cholangiogram results. His diet needs to be advanced as tolerated. OBJECTIVE: His heart rate is 87, blood pressure 107/65, O2 saturation 96%. Despite a fever last night, he is afebrile today on IV Zosyn. He is voiding without difficulty. His urine output is satisfactory. His white blood cell count has gone from 15 to 18. His hematocrit is 38%. Electrolytes are within normal limits except his potassium is low. His total bilirubin is 6.5. His AST and ALT have dropped somewhat. His alkaline phosphatase is 128. PLAN: We will advance his diet, change his antibiotics, and get a chest x-ray. Dr. Miquel Nj is covering for us this weekend.
[2016-05-05] MEDS: SODIUM CHLORIDE 0.9% INJ SCH (13:39)
[2016-05-05] MEDS: PROTONIX IV SCH (13:39)
--- NOTE | 2016-05-05 15:52 | PROGRESS NOTE ---
DATE: 05/05/2016 SUBJECTIVE: This patient had yesterday a laparoscopic cholecystectomy. The abdomen is soft, mild tenderness to palpation in the operative area. No sign of bleed. This patient states that he has been passing gas, but no bowel movement. Surgery Department and Gastroenterology Department are following this patient. OBJECTIVE: Vital Signs: Temperature 100.2 degrees, pulse 100, respiratory rate 23, blood pressure 110/73, oxygen saturation 94 on nasal cannula. HEENT: Head normocephalic. No trauma. PERRLA. Neck: Supple. No JVD. No masses. Central trachea. Chest: Clear to auscultation. No wheezing. No rales. Abdomen: Soft, mild tenderness to palpation in the epigastric and right upper quadrant area. No signs of peritoneal irritation. No sign of bleed, wounds are clean. Extremities: No edema. No clubbing. No cyanosis. Neurological examination: Patient is alert and oriented x3. No focal neurological deficit. Skin: Mild jaundice as well as sclera. LABORATORY: WBC 18.1, hemoglobin 13.3, hematocrit 38.4, platelets 250. Sodium 140, potassium 2.9, chloride 103, bicarbonate 26, BUN 10, creatinine 0.7, glucose 100, calcium 7.5. Total bilirubin 6.5, AST 73, ALT 164, alkaline phosphatase 128, albumin 2.5. ASSESSMENT AND PLAN: 1. Abdominal pain likely related to obstructive jaundice. This patient had a laparoscopic cholecystectomy yesterday and also they performed a cholangiogram that did not show any obstruction. Today, this patient is still having some abdominal pain, but mostly related with the surgery. He has been passing gas. The diet has been advanced. There is some redness at the level of the arm where the intravenous line. The antibiotics has been changed just in case a possible allergic reaction. He is now on levofloxacin. 2. Elevated liver function tests likely related with: (1) AST, ALT and alkaline phosphatase are getting better, the bilirubin is slightly elevated compared with yesterday. We will continue to monitor. We will continue with the intravenous fluids. 3. Fever and chills. He has been running low-grade fever today. We will continue with intravenous fluids and antibiotics. 4. Cough. He is getting breathing treatment as well. We will get a chest x-ray in the morning.
[2016-05-05] MEDS ORDERED: MOTRIN PO ONE (17:43)
[2016-05-05 21:15] LABS: AGAP 15; BUN 8 mg/dL (8-22); CALCIUM 7.9 mg/dL (8.8-10.2); CHLORIDE 100 mmol/L (98-107); CK PROFILE 106 U/L (24-204); COSMO 271; MAGNESIUM 1.9 mg/dL (1.5-2.7); POTASSIUM 2.8 mmol/L (3.5-5.1); SODIUM 136 mmol/L (136-145); TCO2 21 mmol/L (25-35)
[2016-05-05] MEDS: TUSSIONEX LIQUID PO PRN (22:09)
[2016-05-05] MEDS ORDERED: KLOR-CON PO ONE (22:17)
[2016-05-05] MEDS ORDERED: ASPIRIN PO ONE (22:31)
[2016-05-05] MEDS ORDERED: G.I. COCKTAIL PO ONE (23:52)
[2016-05-06] MEDS ORDERED: NITROGLYCERIN TOP PRN (00:14)
[2016-05-06] MEDS: ZOFRAN IV PRN ×3 (02:28→23:43)
[2016-05-06] MEDS: MORPHINE IV PRN ×3 (02:29→23:43)
[2016-05-06] MEDS: DUONEB (A & A) INH PRN ×5 (04:47→23:16)
[2016-05-06 07:23] LABS: BASO% 0.2 % (0.0-0.8); EOS# 0.23 X1000 (0.0-0.7); EOS% 1.3 % (0.0-10.0); HEMATOCRIT 38.4 % (42.0-52.0); HEMOGLOBIN 13.4 g/dL (14.0-18.0); IMM GRAN# 0.29 X1000 (0.0-0.04); IMM GRAN% 1.6 % (0.0-0.5); LYMPH# 0.89 X1000 (1.2-3.4); MANUAL DIFF NEEDED? YES; MCH 31.1 PG (27-31); MCHC 34.9 g/dL (33-37); MCV 89.1 FL (81-99); MONO# 1.15 X1000 (0.11-0.59); MONO% 6.5 % (1.7-9.3); MPV 11.7 FL (7.4-10.4); NEUT% 85.4 % (42.2-75.2); PLT 254 X1000 (130-400); RBC 4.31 XMIL (4.7-6.1)
[2016-05-06] MEDS: TYLENOL PR PRN ×2 (07:42→18:41)
[2016-05-06 07:43] LABS: AGAP 14; ALBUMIN 2.5 g/dL (3.5-5.0); ALKALINE PHOSPHATASE 142 U/L (32-122); BUN 8 mg/dL (8-22); CALCIUM 8.2 mg/dL (8.8-10.2); CHLORIDE 100 mmol/L (98-107); COSMO 274; GOT 60 U/L (10-34); GPT 131 U/L (10-44); POTASSIUM 3.4 mmol/L (3.5-5.1); SODIUM 138 mmol/L (136-145); TCO2 24 mmol/L (25-35); TOTAL BILIRUBIN 6.13 mg/dL (0.20-1.00); TOTAL PROTEIN 5.7 g/dL (6.3-8.3)
[2016-05-06 07:52] LABS: BANDS 6 % (0-1); LYMPHS 10 % (21-51); MONO 6 % (1-9)
[2016-05-06] MEDS: NS 1,000 ML IV SCH ×2 (08:16→18:44)
[2016-05-06] MEDS: FLAGYL 500 MG/NS 100 ML IV SCH ×3 (08:16→20:17)
[2016-05-06] MEDS: LEVAQUIN 750 MG/D5W 150 ML IV SCH ×2 (10:12→11:31)
[2016-05-06] MEDS: TESSALON PO SCH ×3 (10:12→21:15)
--- NOTE | 2016-05-06 10:16 | Diag Imaging Result Document ---
PROCEDURE NAME: CHEST-2 VIEWS - 05/05/2016 CHEST, 2 VIEWS: COMPARISON: 05/01/2016. FINDINGS: Heart size appears within normal limits. There has been interval increase in bilateral lower lung subsegmental atelectasis. There is possible ill-defined infiltrate at the left base. There are apparent tiny pleural effusions. There is no pneumothorax seen. IMPRESSION: Increase in bilateral lower lung subsegmental atelectasis. Possible ill-defined infiltrate at left base.
[2016-05-06] MEDS ORDERED: G.I. COCKTAIL PO ONE (10:36)
[2016-05-06] MEDS ORDERED: SODIUM CHLORIDE 0.9% INJ SCH (10:45)
--- NOTE | 2016-05-06 11:34 | Diag Imaging Result Document ---
PROCEDURE NAME: CHEST-2 VIEWS - 05/06/2016 CHEST, 2 VIEWS: COMPARISON: 05/05/2016. FINDINGS: There is subsegmental atelectasis plus or minus ill-defined infiltrates at bilateral lung bases. This appears mildly increased on the right but decreased on the left. There are possibly tiny pleural effusions. There is no pneumothorax seen. Heart size is normal. IMPRESSION: Mild increase in right basilar atelectasis or infiltrate. Decrease in left basilar atelectasis/infiltrate.
[2016-05-06] MEDS: PROTONIX IV SCH ×2 (12:43→22:20)
--- NOTE | 2016-05-06 12:46 | PROGRESS NOTE ---
DATE: 05/06/2016 SUBJECTIVE: Sore at his incisions, continues with low-grade fevers and generalized malaise. No vomiting. PHYSICAL EXAMINATION: Vital Signs: Temperature is 100.6 degrees, pulse low 100s, blood pressure 113/52, oxygen saturation 92% on room air. General: He is alert. There is some slight scleral icterus. Abdomen: Soft, appropriately tender. Nondistended. Incision is clean, dry, intact. He does have some blistering underneath the Steri-Strips of his subcostal incisions. Integument is otherwise warm, dry. There is some mild jaundice. I have reviewed his labs. White count is downtrending at 17, it did peak at 18 yesterday with hematocrit stable. Creatinine is normal at 0.7, bilirubin is downtrending 6.13, it was as high as 6.8. AST ALT are down as well. Alkaline phosphatase is stable at 142. His hepatitis panel is negative. ASSESSMENT/PLAN: 46-year-old male, who presented with jaundice of unclear etiology and evidence of gallbladder polyps. It is not stones and cholecystitis. He underwent cholecystectomy day before yesterday with Dr. Yoder and cholangiogram showed no evidence of distal filling defect. Clinically he continues with low-grade fevers and jaundice of unclear etiology. It is possible this is related to transient passage of stone that is resolved now, however other sources of liver dysfunction are unclear. His hepatitis panel is negative. Liver biopsies pending performed by Dr. Yoder. Dr. Kong with Hospitalists is beginning a more unusual workup for jaundice and liver failure type issues with autoimmune processes and other intrinsic liver disease. Otherwise would continue antibiotics for the treatment of possible cholangitis associated with transient choledocholithiasis. Will continue to monitor. Clear liquids would be okay from a surgical standpoint, but he is a little nauseated and not feeling that well with not much of an appetite and so would monitor.
--- NOTE | 2016-05-06 14:34 | CONSULTATION ---
DATE OF CONSULTATION: 05/06/2016 INDICATION: New onset atrial fibrillation. HISTORY OF PRESENT ILLNESS: Mr. Ang is a 46-year-old white male with no past medical history. He presented to the hospital on 05/02/2016 with complaints of fever and diarrhea for around five days. Over the course of the hospitalization, he subsequently had a cholecystectomy. Last night, he was in his usual state of health. He was lying in bed around 11:30, had an episode of heart racing. He was noted to be in atrial fibrillation with a rate of 182 beats per minute. First EKG was at 2346, confirming this. Next EKG at 2358 showed that he had converted over to sinus rhythm. The patient presently has no heart racing. He has no shortness of breath. No history of stroke. No diabetes, and he is not hypertensive. He has no history of bleeding issues that he is aware of. PAST MEDICAL HISTORY: None. SOCIAL HISTORY: He is . is present at the bedside with him. No history of smoking. Occasional alcohol. FAMILY HISTORY: Unremarkable for any early coronary disease. REVIEW OF SYSTEMS: A 10-system review of systems is negative except for those as mentioned in HPI. PHYSICAL EXAMINATION: Vital signs: Patient has been persistently febrile. He is 100.6 today, and he has been noted to be persistently febrile every day during the course of this hospitalization. Heart rate is in the 100s to 110s. Blood pressure 113/52. General: In no acute distress. HEENT: Oropharynx is moist. Normal dentition. Eye examination shows pink conjunctivae, white sclerae. Neck: Neck examination shows no obvious thyromegaly or thyroid tenderness. Cardiovascular: rate and rhythm. He has no obvious murmurs. No S3. No lower extremity edema. Chest: His chest exam is clear to auscultation bilaterally. No increased work of breathing. Abdomen: His abdomen is soft, nontender, nondistended. No obvious organomegaly. Skin: Skin exam is warm and dry throughout without any rashes. Neurologic: Moving all extremities well. Cranial nerves II through XII are intact without any sensation deficits. Psychiatric: Alert and oriented, pleasant. Normal mood and affect. PERTINENT DATA: Chest x-ray demonstrated mild increase in right basilar atelectasis or infiltrate. Echocardiogram is currently pending. His EKG results were as detailed in the HPI. White count is 17.6, hematocrit 38.4, platelet count 254. He has a left shift with a bandemia, 76% neutrophils, 6% bands. Sodium 138. Potassium is 3.4. His BUN is 8, creatinine 0.7. Cardiac enzymes are negative. ASSESSMENT: New onset atrial fibrillation. PLAN: We will check a TSH in the morning. I will start him on 25 mg of Toprol. We will check an echocardiogram in the morning. Likely this is related to his ongoing febrile illness. Hopefully we will not need to initiate antiarrhythmics. The patient has a CHADS score of 0. We will try to initiate aspirin in the future once safe from the postoperative standpoint.
--- NOTE | 2016-05-06 14:50 | PROGRESS NOTE ---
DATE: 05/06/2016 SUBJECTIVE: This patient states that he is feeling much better, he is tolerating better p.o., he is ambulating. He is passing gas but no bowel movement so far. He is still having fever but compared with the admission is better. Surgery and Gastroenterology Department are following this patient. OBJECTIVE: Vital Signs: Temperature 100.6 degrees, pulse 114, respiratory rate 16, blood pressure 113/52, O2 saturation 92 on room air. HEENT: Head normocephalic. No trauma. PERRLA. Neck: Supple. No JVD. No masses. Central trachea. Skin is jaundiced. Chest: Clear to auscultation. No wheezing. No rales. Abdomen: Soft, mild tenderness to palpation in the epigastric area and right upper quadrant. No signs of peritoneal irritation. No sign of bleed. Wounds are clean, he has some blisters likely secondary to adhesive allergy. Extremities: No edema. No clubbing. No cyanosis. Neurological: Patient is alert and oriented x3. No focal neurological deficits. LABORATORY: WBC 17.6, hemoglobin 13.4, hematocrit 38.4, platelets 254,000, bands 6, sodium 134, potassium 3.4, chloride 100, bicarbonate 24, BUN 8, creatinine 0.7, glucose 94, calcium 8.2, total bilirubin 6.1, AST 60, ALT 131, alkaline phosphatase 142, albumin 2.5. ASSESSMENT AND PLAN: 1. Abdominal pain likely related to obstructive jaundice. This patient had a laparoscopic cholecystectomy two days ago and also they performed a cholangiogram that did not show any obstruction. Today this patient feels better, but he is still getting fever. I will continue with levofloxacin and I will add metronidazole to his medications, also I will do lab work for any autoimmune disease. 2. Elevated function tests likely related with #1. 3. AST, ALT and alkaline phosphatase and bilirubin are getting better compared with yesterday. We will continue to monitor. We will continue with IV fluids and antibiotics as well. 4. Fever and chills. He has been having low grade fever, mild tachycardia. We will continue with IV fluids, antibiotics, and medication for fever. 5. Cough. He has been getting respiratory treatment as well. We had a chest x-ray that showed lower lung segmental atelectasis and possible ill-defined infiltrate at the left base, so this patient probably has pneumonia. He is already on levofloxacin and respiratory treatment.
[2016-05-06] MEDS: SODIUM CHLORIDE 0.9% INJ SCH ×2 (15:24→22:21)
[2016-05-06] MEDS: PHENERGAN IV PRN (15:24)
[2016-05-06 17:38] LABS: BASO% 0.6 % (0.0-0.8); EOS# 0.22 X1000 (0.0-0.7); EOS% 1.1 % (0.0-10.0); HEMATOCRIT 37.2 % (42.0-52.0); HEMOGLOBIN 13.4 g/dL (14.0-18.0); IMM GRAN# 0.63 X1000 (0.0-0.04); LYMPH# 0.96 X1000 (1.2-3.4); LYMPH% 4.6 % (20.5-51.1); MANUAL DIFF NEEDED? YES; MCH 31.5 PG (27-31); MCV 87.3 FL (81-99); MONO# 1.26 X1000 (0.11-0.59); MONO% 6.1 % (1.7-9.3); MPV 11.3 FL (7.4-10.4); NEUT% 84.6 % (42.2-75.2); PLT 276 X1000 (130-400); RBC 4.26 XMIL (4.7-6.1)
[2016-05-06 17:58] LABS: BANDS 1 % (0-1); LYMPHS 5 % (21-51); MONO 3 % (1-9)
[2016-05-06 18:01] LABS: AGAP 13; ALBUMIN 2.5 g/dL (3.5-5.0); ALKALINE PHOSPHATASE 139 U/L (32-122); BUN 8 mg/dL (8-22); CALCIUM 8.2 mg/dL (8.8-10.2); CHLORIDE 99 mmol/L (98-107); COSMO 270; GOT 83 U/L (10-34); GPT 135 U/L (10-44); POTASSIUM 2.9 mmol/L (3.5-5.1); SODIUM 136 mmol/L (136-145); TCO2 24 mmol/L (25-35); TOTAL BILIRUBIN 6.19 mg/dL (0.20-1.00); TOTAL PROTEIN 5.8 g/dL (6.3-8.3)
[2016-05-06] MEDS: TOPROL XL PO SCH (20:16)
[2016-05-07] MEDS: FLAGYL 500 MG/NS 100 ML IV SCH ×2 (01:35→08:17)
[2016-05-07] MEDS: NS 1,000 ML IV SCH ×2 (01:35→11:13)
[2016-05-07] MEDS: DUONEB (A & A) INH PRN ×5 (03:41→22:47)
[2016-05-07] MEDS: PHENERGAN IV PRN ×2 (04:20→17:45)
[2016-05-07] MEDS: SODIUM CHLORIDE 0.9% INJ PRN ×2 (04:20→11:13)
[2016-05-07 07:45] LABS: BASO% 0.7 % (0.0-0.8); EOS# 0.32 X1000 (0.0-0.7); EOS% 1.6 % (0.0-10.0); HEMATOCRIT 37.6 % (42.0-52.0); HEMOGLOBIN 13.2 g/dL (14.0-18.0); IMM GRAN# 0.53 X1000 (0.0-0.04); IMM GRAN% 2.6 % (0.0-0.5); LYMPH# 1.16 X1000 (1.2-3.4); LYMPH% 5.7 % (20.5-51.1); MANUAL DIFF NEEDED? YES; MCH 30.6 PG (27-31); MCHC 35.1 g/dL (33-37); MCV 87.2 FL (81-99); MONO# 1.12 X1000 (0.11-0.59); MONO% 5.5 % (1.7-9.3); MPV 11.8 FL (7.4-10.4); NEUT% 83.9 % (42.2-75.2); PLT 287 X1000 (130-400); RBC 4.31 XMIL (4.7-6.1)
[2016-05-07] MEDS: MOTRIN LIQUID PO PRN ×2 (08:15→19:45)
[2016-05-07] MEDS: TESSALON PO SCH ×3 (08:17→21:28)
[2016-05-07 08:19] LABS: AGAP 14; ALBUMIN 2.5 g/dL (3.5-5.0); ALKALINE PHOSPHATASE 155 U/L (32-122); BUN 9 mg/dL (8-22); CALCIUM 7.7 mg/dL (8.8-10.2); CHLORIDE 96 mmol/L (98-107); COSMO 265; GOT 188 U/L (10-34); GPT 208 U/L (10-44); POTASSIUM 3.3 mmol/L (3.5-5.1); SODIUM 133 mmol/L (136-145); TCO2 23 mmol/L (25-35); TOTAL BILIRUBIN 5.62 mg/dL (0.20-1.00); TOTAL PROTEIN 5.5 g/dL (6.3-8.3)
[2016-05-07 08:20] LABS: BANDS 12 % (0-1); LYMPHS 4 % (21-51); MONO 4 % (1-9)
[2016-05-07 10:28] LABS: DIRECT BILIRUBIN 4.5 mg/dL (0.00-0.20)
--- NOTE | 2016-05-07 10:58 | PROGRESS NOTE ---
DATE: 05/07/2016 SUBJECTIVE: Still having a productive cough, some shortness of breath. No real abdominal pain. Not much in the way of appetite. Temperature max was 102.6 overnight. PHYSICAL EXAMINATION: Vital Signs: T-max 102.6 degrees. Pulse has been in the high 90s. Blood pressure 119/74. Oxygen saturation 94% on room air. General: He is alert. No acute distress. HEENT: Mild scleral icterus. Mild jaundice but this appears slightly improved. Cardiovascular: Normal rate and regular rhythm. Pulmonary: No increased work of breathing but does have a productive cough. Abdomen: Soft, nontender, nondistended. Incision is clean, dry, intact. There is some slight blistering from the adhesive strips on the upper abdomen. REVIEW OF LABS: White count is up to 20. His LFTs are downtrending with a bilirubin of 5.62, AST 188, ALT 208, alkaline phosphatase is 155. These are up slightly. ASSESSMENT: This is a 46-year-old male with jaundice of unclear etiology. It is possibly related to transient choledocholithiasis. He also appears to be having pneumonia. We are treating him for possible ascending cholangitis as well. Remains febrile with leukocytosis. We are broadening his antibiotics. His cholangiogram showed patent bile duct with no distal obstruction. His abdomen is appropriate postoperative. We will continue to follow him along as he progresses.
[2016-05-07] MEDS: NS IV SCH ×2 (11:13→17:46)
[2016-05-07] MEDS: PROTONIX IV SCH ×2 (11:13→23:36)
[2016-05-07] MEDS: MERREM IV SCH ×2 (11:13→17:46)
--- NOTE | 2016-05-07 12:44 | PROGRESS NOTE ---
DATE: 05/07/2016 SUBJECTIVE: Mr. Ang has had some episodic heart racing consistent with atrial fibrillation this morning. Episodes have been relatively brief. OBJECTIVE: Vital signs: He continues to be febrile with T max of 101.5 this morning at 7:14. Yesterday he had a T-max of 102.6 degrees. Heart rate 99, blood pressure 119/74. General: No acute distress. Cardiovascular: He is in a mildly tachycardic and regular rhythm. Telemetry currently shows sinus. Chest: Exam is clear to auscultation bilaterally. No increased work of breathing. Abdomen: Soft. Mild diffuse tenderness to palpation. PERTINENT DATA: White count 20.5, hematocrit is 37, platelet count is 287,000. He has 78% neutrophils and 12% bands which have gone up since. Yesterday sodium is 133, potassium 3.3. His BUN is 9, creatinine 0.7. His liver enzymes are increasing with an AST of 208 and ALT of 155. Yesterday they were 135 and 139 respectively. His albumin is 2.5. TSH is 1.5. ASSESSMENT: New onset atrial fibrillation. PLAN: I will add propafenone 150 mg b.i.d. We will decrease the dose from t.i.d. due to his hepatic issues. I will give him a now dose. We will replete his potassium which is a bit low today. I will do this through the IV route. Will give 40 mEq.
[2016-05-07] MEDS: LEVAQUIN 750 MG/D5W 150 ML IV SCH (13:34)
--- NOTE | 2016-05-07 13:36 | PROGRESS NOTE ---
DATE: 05/07/2016 SUBJECTIVE: This patient is about the same compared with yesterday. He has been having episodic atrial fibrillation and cardiology department is taking care of this patient. This patient is still running fever. Leukocytes are high and the transaminases are higher compared with yesterday, I am concerned about any bacterial resistance, this patient most likely has cholangitis and I will start this patient on meropenem in case of ESBL. Also I will consult the Infectious Disease Department Dr. Sneed. OBJECTIVE: Vital Signs: Temperature 101.5 degrees, pulse 99, respiratory rate 22, blood pressure 119/74, O2 saturation 94% on room air. HEENT: Head normocephalic. No trauma. PERRLA. Neck: Supple. No JVD. No masses. Central trachea. Skin: Jaundiced. Chest: Clear to auscultation. Crepitation at the level of the right lower lobe. No wheezing. No rales. Abdomen: Soft. Mild tenderness to palpation in the epigastric and right upper quadrant. No signs of peritoneal irritation. No sign of bleed. Wounds are clean. He has some blisters likely secondary to adhesive allergy. Extremities: No edema. No clubbing. No cyanosis. Neurological: The patient is alert and oriented x3. No focal neurological deficits. LABORATORY: WBC 20.4, hemoglobin 13.2, hematocrit 37.6, platelets 287,000, bands 12. Sodium 133, potassium 3.3, chloride 96, bicarbonate 23, BUN 9, creatinine 0.7, calcium 7.7. AST 188, ALT 208, alkaline phosphatase 155, albumin 2.5. ASSESSMENT AND PLAN: 1. Abdominal pain likely related with ascending cholangitis. This patient had a laparoscopic cholecystectomy 2 days ago and also they performed a cholangiogram that did not show any obstruction. Today the liver function test is worse and this patient is still having fever, I will add meropenem to his medications to cover ESBL. Also I asked for HIV, JAISON, and I will discuss this case with the infectious disease doctor Dr. Sneed to see if we need to get CMP and Remi-Palmer virus, I talked to the nurse about this case and they will contact also the Gastroenterology Department. 2. Elevated function tests likely related with #1. 3. Atrial fibrillation. This patient is on beta blockers. Dr. Scottie Monroy is following this patient. He has been having still episodes of atrial fibrillation. 4. Fever and chills. I think the quinolones and metronidazole even though is a good option for cholangitis I will cover ESBL, I will start this patient on meropenem. 5. Right lower lobe pneumonia, I will continue with the same management for now, he is getting antibiotics.
[2016-05-07] MEDS: RYTHMOL PO SCH ×2 (13:40→21:28)
--- NOTE | 2016-05-07 13:40 | ECHO REPORT ---
ORDER DATE: 05/07/2016 INDICATION: Atrial fibrillation. FINDINGS: 1. Right atrium is normal size at 3.7. 2. Mild tricuspid regurgitation. RV systolic pressure of 42. 3. Normal RV size and systolic function. 4. Mild pulmonic insufficiency. 5. Upper limits of normal left atrium at 4 cm. 6. No mitral valve prolapse. Mild mitral regurgitation. 7. Normal LV size, end-diastolic dimension of 5.4. Normal wall thicknesses with a posterior and interventricular septal thickness 1 cm. Normal LV systolic function. Calculated EF 66% with normal wall motion. 8. Aortic valve opens well. No evidence of stenosis or insufficiency. 9. Aorta appears normal in visualized segments. 10. No pericardial effusion identified.
[2016-05-07] MEDS: ZOFRAN IV PRN ×2 (14:52→18:51)
[2016-05-07] MEDS: MORPHINE IV PRN ×2 (14:52→18:50)
[2016-05-07] MEDS: DOXYCYCLINE PO SCH ×2 (15:08→21:28)
[2016-05-07] MEDS: POTASSIUM CHLORIDE 20 MEQ/SWI 100 ML IV SCH ×2 (15:10→23:29)
--- NOTE | 2016-05-07 16:53 | PROGRESS NOTE ---
DATE: 05/05/2016 SUBJECTIVE: Patient had a laparoscopic cholecystectomy yesterday. Patient still continues to have cough and the has a lot of questions because Dr. Yoder did not think the gallbladder was that bad to cause his abnormal liver enzymes. OBJECTIVE: Vital Signs: Temperature 100.2 degrees, pulse 100, respiration rate 23, blood pressure 110/73, O2 saturation 94 on 2 L. HEENT: Normocephalic. Neck: Supple. Trachea in the midline. Scleral icterus present. No conjunctival pallor. Lungs: There is some crepitus in the left lower lobe area. Abdomen: Soft, tender in surgical site. Bowel sounds are present. Extremities: Unremarkable. LABORATORY DATA: White count 18,000, hematocrit 38. Total bilirubin 6.5, AST 73, ALT 164, alkaline phosphatase 128. Albumin is low at 2.6. ASSESSMENT AND PLAN: 1. Status post cholecystectomy. 2. Pneumoniae, as well as abnormal liver function tests may or may not be related to #1. 3. Continued fever and chills. 4. Continued cough. Although there is a slight decrease in liver function tests, I am not completely convinced. I did talk to the that if we see the trend of continued reduction in liver function tests, then we do not need to worry. Otherwise, we will do further diagnostic tests.
--- NOTE | 2016-05-07 16:54 | PROGRESS NOTE ---
DATE: 05/06/2016 SUBJECTIVE: Patient is about the same. Still has a lot of cough, requiring breathing treatments. He never had any lung issues before that. OBJECTIVE: Vital signs: Temperature 100 degrees, pulse 100, respiratory rate 16, blood pressure 113/60, O2 saturation 92%. HEENT: Scleral icterus present. No conjunctival pallor. Neck: Supple. Trachea midline. Lungs: Left lower lung has some crackles. Abdomen: Tender at the surgical site. Neurological: Alert. LABORATORY DATA: White count is 17,000, hemoglobin and hematocrit are about the same. AST is slightly up to 83 and alkaline phosphatase is up to 139. ALT is down slightly, 135. Albumin is down to 2.5. ASSESSMENT AND PLAN: 1. Hepatitis. 2. Status post cholecystectomy and this may not be related to #1. 3. Pneumoniae. 4. Fever and chills. I am having doubts that it is related. The patient certainly does not have obstructive pattern at all, and there does not appear to be any sepsis from the gallbladder itself. We will see how he does tomorrow and decide further management. -5
--- NOTE | 2016-05-07 16:55 | PROGRESS NOTE ---
DATE: 05/07/2016 SUBJECTIVE: The patient is feeling about the same. Still having fever, he feels slightly better he says. OBJECTIVE: Vital signs: Temperature 100 degrees, pulse 100, respiratory rate 18, blood pressure 120/60. O2 saturation 93% on room air. HEENT: Scleral icterus present. Neck: Supple. Trachea midline. Lungs: Basal crepitus on the left side. DIAGNOSTICS: LFTs: AST 188, ALT 208, alkaline phosphatase 155, LDH 274. Albumin at 2.5. White count is worse than yesterday. IMPRESSION: 1. Pneumonia. I think the patient may have mycoplasma pneumoniae, which might explain the hepatitis pattern. 2. Status post cholecystectomy which does not seem to be connected. 3. Continued fever and chills secondary to pneumoniae. 4. Cough, secondary to pneumonia. RECOMMENDATION: I think we will get mycoplasma titers and we will start him on tetracycline or azithromycin. We will consult Infectious Disease as well. I am beginning to be concerned about mycoplasma pneumoniae. -7
[2016-05-07] MEDS: SODIUM CHLORIDE 0.9% INJ SCH ×2 (17:46→23:37)
[2016-05-07] MEDS ORDERED: SYSTANE EYE DROPS BOTH EYES PRN (20:20)
--- NOTE | 2016-05-07 20:21 | CONSULTATION ---
DATE OF CONSULTATION: 05/07/2016 CONCLUSION: The patient has a febrile illness. He has had his gallbladder removed. I do not have the pathology report for the gallbladder to know if it was the cause or not. Liver function studies are elevated. I think hepatitis should be considered. It is my understanding that the hepatitis profile had been drawn, but when I looked in the computer I could not find one. The patient's eyes today look injected and this along with his liver function studies I think brings up the possibility of leptospirosis, although the patient does not have any outdoor exposure recently to suggest that he had has that illness. I think it is possible that postoperatively there could be some infection in his abdomen. RECOMMENDATIONS: I have discontinued Flagyl and Levaquin. The patient now has been started on meropenem and doxycycline. I have ordered an antibody for leptospirosis, a hepatitis panel and a computed tomography scan of the abdomen and pelvis. DISCUSSION: The patient has a febrile illness. He has generalized pain. He has a cough. He is complaining of a headache. In the past 4 days he has blurred vision and injected conjunctivae. He has not felt any better. He underwent a laparoscopic cholecystectomy and as mentioned above, path report is pending. He does not have any drainage from any of his small incisions and he is not complaining of much in the way of abdominal pain other than the generalized pain that he is having all over. The patient's laboratory studies show a white count of 20,470, hemoglobin 13.2, and platelet count 287,000. Creatinine 0.7. Liver function studies are elevated. The bilirubin is 5.6 and the ALT is 208. The patient's blood and urine cultures are sterile. His influenza A and B screen is negative. The patient had a normal cholangiogram during surgery. PAST MEDICAL HISTORY REVIEW OF SYSTEMS: Eyes in ears: Patient denies difficulty hearing. As mentioned above, he does have some blurring in his vision now. Respiratory: He had a cough, but really is not coughing much now. He is not complaining of shortness of breath. Cardiovascular: Patient apparently went into atrial fibrillation. He is not having much in the way of chest pain currently. GI: The patient has not had any stool in a couple of days. He denies vomiting. He is jaundiced though. : He is not complaining of any dysuria or flank pain. Neurologic: The patient has not had any seizures. He has not had any tremors. He does not have any motor or sensory loss currently. The remainder of the patient's review of systems was completed and negative. PREVIOUS HOSPITALIZATION AND OPERATIONS: He has had a tonsillectomy. He had a removal of the needle that was in his foot. He has also had removal of a melena. He has also had treatment of a melanoma with the laser. INFECTIOUS DISEASE HISTORY: Positive for UTI. FAMILY HISTORY: Positive for myocardial infarction. SOCIAL HISTORY: [place] He has dogs for pets. He occasionally drinks an alcoholic beverage. He does not smoke cigarettes or abuse drugs. He is . He has 3 children. He owns an auto body shop. PHYSICAL EXAMINATION: Vital signs: Earlier the patient's temperature was 101.5 degrees. Now it is 98.6, pulse 91, respirations 18, blood pressure 108/60. General: This is an ill-appearing middle-aged male who is in no acute distress. Head, eyes, ears, nose, and throat: He can hear my spoken words and see near objects. His eyes are injected. No drainage noted from the nose or ears. Intraorally, there are no white patches. Neck: No meningismus. Thorax: No increased AP diameter of the chest. Lungs: Clear to auscultation. Cardiovascular: Regular heart rate. I did not hear a murmur. Abdomen: Soft and nontender. The laparoscopic cholecystectomy incisions are intact. They are not draining. They are not erythematous. There are a few small bullae on the patient's chest. Neurologic: Patient is alert. He can move his extremities. There is no tremor. He is able to walk without and any aid. His memory as regarding his medical history seemed to be intact. Thank you for the consult.
[2016-05-07] MEDS: CARAFATE LIQUID PO SCH (21:27)
[2016-05-07] MEDS: TOPROL XL PO SCH (21:28)
[2016-05-08] MEDS ORDERED: POTASSIUM CHLORIDE 20 MEQ/SWI 100 ML IV ONE
[2016-05-08] MEDS: NS 1,000 ML IV SCH ×2 (01:39→12:28)
[2016-05-08] MEDS: MERREM IV SCH ×3 (01:43→18:22)
[2016-05-08] MEDS: NS IV SCH ×3 (01:43→18:22)
[2016-05-08] MEDS: MORPHINE IV PRN ×3 (01:48→18:29)
[2016-05-08] MEDS: ZOFRAN IV PRN ×3 (01:51→18:29)
[2016-05-08] MEDS: DUONEB (A & A) INH PRN ×6 (03:30→23:35)
[2016-05-08] MEDS: TUSSIONEX LIQUID PO PRN (05:19)
[2016-05-08] MEDS: CARAFATE LIQUID PO SCH ×3 (06:22→21:14)
--- NOTE | 2016-05-08 07:41 | EKG Report ---
Test Performed on : 05/08/2016 06:44:10 AM Test Reason : afib Blood Pressure : / mmHG Vent. Rate : 101 BPM Atrial Rate : 101 BPM P-R Int : 120 ms QRS Dur : 080 ms QT Int : 348 ms P-R-T Axes : 030 000 018 degrees QTc Int : 451 ms Sinus tachycardia. Possible Anterior infarct , age undetermined Abnormal ECG When compared with ECG of 06-MAY-2016 09:07, (Unconfirmed) No significant change was found Confirmed by Samantha COON, Varghese Sims ([id number]) on 05/10/2016 3:21:44 PM
[2016-05-08 08:16] LABS: AGAP 13; ALBUMIN 2.3 g/dL (3.5-5.0); ALKALINE PHOSPHATASE 181 U/L (32-122); BUN 8 mg/dL (8-22); CALCIUM 7.7 mg/dL (8.8-10.2); CHLORIDE 101 mmol/L (98-107); COSMO 271; GOT 163 U/L (10-34); GPT 221 U/L (10-44); POTASSIUM 3.5 mmol/L (3.5-5.1); SODIUM 136 mmol/L (136-145); TCO2 22 mmol/L (25-35); TOTAL BILIRUBIN 3.87 mg/dL (0.20-1.00); TOTAL PROTEIN 5.8 g/dL (6.3-8.3)
[2016-05-08 08:18] LABS: BASO% 0.5 % (0.0-0.8); EOS# 0.58 X1000 (0.0-0.7); EOS% 2.8 % (0.0-10.0); HEMATOCRIT 36.9 % (42.0-52.0); IMM GRAN# 0.68 X1000 (0.0-0.04); IMM GRAN% 3.3 % (0.0-0.5); LYMPH# 1.04 X1000 (1.2-3.4); MANUAL DIFF NEEDED? YES; MCH 30.8 PG (27-31); MCHC 35.2 g/dL (33-37); MCV 87.4 FL (81-99); MONO# 1.19 X1000 (0.11-0.59); MONO% 5.8 % (1.7-9.3); MPV 11.7 FL (7.4-10.4); NEUT% 82.6 % (42.2-75.2); PLT 287 X1000 (130-400); RBC 4.22 XMIL (4.7-6.1)
--- NOTE | 2016-05-08 08:32 | PROGRESS NOTE ---
DATE: 05/08/2016 SUBJECTIVE: Mr. Jonah Ang is a 46-year-old, white male, who is now postop day 4 from a laparoscopic cholecystectomy with intraoperative cholangiogram. There was evidence of stasis within the gallbladder and inflammation. The intraoperative cholangiogram was normal. The liver grossly appeared normal, but I did take a liver biopsy at the time of surgery. Over the weekend, he went into atrial fibrillation and was seen by Dr. Monroy our tufting creeler. Also Dr. Sneed, our infectious disease specialist was also consulted. Dr. Mcnair, our foundry helper, also saw the patient over the weekend. OBJECTIVE: His trocar sites are healing well. His abdomen is soft and I feel intraabdominally, he is doing well. A CT scan of his abdomen and pelvis was ordered last night by Dr. Franky Sneed and I have not seen that x-ray at this dictation. He has had a fever over the weekend and his temperature is 100.5. He is on IV antibiotics, including doxycycline, Flagyl, Merrem. His white blood cell count is stable at 20.47. Hematocrit is 38%. His heart rate is 89-110 atrial fibrillation. Blood pressure 119/72, O2 saturation 91%. He is voiding without difficulty. He has not had a bowel movement in a week, but he is passing flatus and his abdomen is mostly soft. LABS: His liver function tests, his total bilirubin is 5.62. His AST is 188, ALT is 208, alkaline phosphatase is 155. His thyroid function tests are within normal limits. A chest x-ray on 05/06/2016 suggested a possible right base atelectasis or infiltrate. He is on a GI soft diet. PLAN: I feel that his operation is without complication and continued evaluation for his ongoing illness is being done.
[2016-05-08] MEDS: MOTRIN LIQUID PO PRN ×2 (09:22→18:23)
[2016-05-08] MEDS: TESSALON PO SCH ×3 (09:25→21:13)
[2016-05-08] MEDS: RYTHMOL PO SCH ×2 (09:25→21:13)
[2016-05-08] MEDS: DOXYCYCLINE PO SCH ×2 (09:25→21:13)
[2016-05-08 09:41] LABS: BANDS 8 % (0-1); LYMPHS 2 % (21-51); MONO 6 % (1-9)
[2016-05-08] MEDS: PROTONIX IV SCH ×3 (12:27→21:16)
[2016-05-08] MEDS: TEARISOL OPH SOLUTION BOTH EYES SCH ×3 (12:27→21:13)
[2016-05-08] MEDS: SODIUM CHLORIDE 0.9% INJ SCH (12:27)
[2016-05-08 12:34] LABS: IRON SATURATION 27 %; TIBC 119 ug/dL; TOTAL IRON 32 ug/dL (53-167); UNBOUND IRON 87 ug/dL (112-346)
--- NOTE | 2016-05-08 12:44 | PROGRESS NOTE ---
DATE: 05/08/2016 SUBJECTIVE: The patient is resting in bed. He is feeling slightly better. He continues to have an elevated white count, and his liver enzymes have started to trend down. His total bilirubin this morning was 3.87. His chronic liver disease workup is currently ongoing. OBJECTIVE: Vital Signs: Temperature to 101.5, blood pressure of 85, respiratory rate 16, blood pressure of 119/72, saturating 90% on Venturi mask. General: Moderately nourished, lying in bed, in no acute distress. HEENT: Pale conjunctivae. Icteric sclerae. Neck: Supple. Abdomen: Mild discomfort in the right upper quadrant. No rebound. No guarding. Extremities: No cyanosis, clubbing. Neurologic: He is alert, awake, oriented. LABORATORY DATA: Hemoglobin and hematocrit are 13 and 36.9, white count 20.64, platelet count of 287,000, MCV of 87.4%, neutrophils 82.6%. INR 1.01. Sodium 132, potassium 3.5 , chloride 101, bicarbonate 22, anion with 13, BUN of 8, creatinine 0.6, glucose of 115, calcium 7.7. Total bilirubin is 3.87, AST 163, ALT 221, alkaline phosphatase 181, total protein 5.8 , albumin of 2.3. Ferritin level of 2815. Urinalysis showing moderate bilirubin, and JAISON is negative. Hepatitis panel is nonreactive. IMPRESSION AND PLAN: 1. Elevated liver enzymes, cholestatic pattern, showing a slow resolution, and the patient is status post cholecystectomy, day [address] Yoder, and normal intraoperative cholangiogram with no obstruction noted. The liver biopsy results are currently pending. We will order chronic liver disease work up and I recommend to follow iron studies, ceruloplasmin, anti-mitochondrial antibody, alpha-1 antitrypsin level. 2. Fevers, chills, and cough. Dr. Sneed is trying to evaluate for any kind of intraabdominal pathology, but also he looking antibody for leptospirosis and ordering a repeat CT of the abdomen and pelvis. The patient is being covered with broad-spectrum antibiotics. 3. The patient to continue on gastrointestinal prophylaxis with Protonix. 4. Chest x-ray showing increase in the right basilar infiltrate and decrease in left basilar infiltrate on current antibiotics. 5. Further recommendations pending hospital course. [facility]
--- NOTE | 2016-05-08 14:31 | Diag Imaging Result Document ---
PROCEDURE NAME: CHEST-PORTABLE - 05/08/2016 PORTABLE CHEST X-RAY: COMPARISON: 05/06/2016. FINDINGS: There is slight improvement in the right lower lobe infiltrate, with better visualization of the right hemidiaphragm. Otherwise, stable basilar infiltrate on the right. There is a grossly stable left basilar infiltrate as well. There are small pleural effusions stable from prior. IMPRESSION: Slight improvement from prior.
--- NOTE | 2016-05-08 14:53 | EKG Report ---
Test Performed on : 05/05/2016 8:46:01 PM Test Reason : rule out afib Blood Pressure : / mmHG Vent. Rate : 170 BPM Atrial Rate : 441 BPM P-R Int : 000 ms QRS Dur : 080 ms QT Int : 270 ms P-R-T Axes : 000 187 259 degrees QTc Int : 454 ms Suspect arm lead reversal, interpretation assumes no reversal Atrial fibrillation. with rapid ventricular response. with premature ventricular or aberrantly conduc piyush complexes. Lateral infarct , age undetermined Inferior infarct , age undetermined Abnormal ECG When compared with ECG of 05-MAY-2016 03:27, Atrial fibrillation. has replaced Sinus rhythm. Questionable change in QRS axis Inferior infarct is now present ST now depressed in Anterior leads Confirmed by Samantha COON, Varghese Sims ([id number]) on 05/10/2016 3:20:49 PM
--- NOTE | 2016-05-08 14:54 | EKG Report ---
Test Performed on : 05/06/2016 09:07:55 AM Test Reason : Elevated Troponin Blood Pressure : / mmHG Vent. Rate : 103 BPM Atrial Rate : 103 BPM P-R Int : 124 ms QRS Dur : 078 ms QT Int : 314 ms P-R-T Axes : -11 -25 004 degrees QTc Int : 411 ms Sinus tachycardia. Nonspecific T wave abnormality Abnormal ECG When compared with ECG of 05-MAY-2016 23:58, (Unconfirmed) QT has shortened Confirmed by Samantha COON, Varghese Sims ([id number]) on 05/10/2016 3:21:13 PM
--- NOTE | 2016-05-08 16:18 | PROGRESS NOTE ---
DATE: 05/08/2016 SUBJECTIVE: Mr. Ang has been doing well. He feels somewhat better today. He was noted to be febrile earlier. He has not had any episodes of heart racing since yesterday morning. PHYSICAL: Vital signs: He is febrile to 101.5 this morning. Heart rate of 94, blood pressure is 108/70. Generally: No acute distress. Cardiovascular: He is in a regular rate and rhythm. He has no obvious murmurs. No S3. No lower extremity edema. Chest: Clear bilaterally. No increased work of breathing. Abdomen: Soft, nontender, nondistended. He has no obvious organomegaly. Skin Exam: Warm and dry throughout without any rashes PERTINENT DATA: His laboratory data demonstrates a white count of 20.6, his hematocrit is 37, platelet count is 287,000. He continues to have a left shift with bandemia. Sodium 136, potassium 3.5, BUN 8, creatinine 0.8. His total bilirubin is 3.87 which is down from 5.62. ASSESSMENT: 1. Febrile illness status post cholecystectomy. 2. Atrial fibrillation. PLAN: He seems to be doing well on the propafenone. He has a preserved ejection fraction. We will continue him on the current course of therapy and likely plan will be to have him follow up with us in the office a month after discharge. If he is asymptomatic we will likely try to discontinue the propafenone and use a 30-day CARY to assess for further episodes of atrial fibrillation.
--- NOTE | 2016-05-08 16:20 | PROGRESS NOTE ---
DATE: 05/08/2016 SUBJECTIVE: This patient is still having fever but this patient is feeling a little bit better. He is breathing better and he is not complaining of abdominal pain. We ordered a CT of the abdomen and pelvis yesterday that was taking but we do not have an official read right now. Today I asked for a new chest x-ray. The gastroenterology department is following this patient as well as infectious disease department. Surgery evaluated this patient today because this patient is status post cholecystectomy. OBJECTIVE: Vital Signs: Today at 8:30 a.m. this patient had a temperature of 101.5 degrees. At this moment pulse 85, respiratory rate 16, oxygen saturation 90% on a Venturi mask. HEENT: Head normocephalic. No trauma. PERRLA. Conjunctivae reddish and icteric. Neck: Supple. No JVD. No masses. Central trachea. Chest: Decreased breath sounds mostly at the bases. Right lower lung rhonchi. No wheezing. Abdomen: Soft. Positive bowel sounds. Mild tenderness to palpation in the perioperative area. No signs of peritoneal irritation or bleed. Wounds are clean. He has some blisters likely secondary to adhesive allergy. Extremities: No edema. No clubbing. No cyanosis. Neurological: The patient is alert and oriented x3. No focal deficits. Skin: Jaundiced. LABORATORY: WBC 20.6, hemoglobin 13.0, hematocrit 36.9, platelet 287,000, neutrophils 82.6%, lymphocytes 5%, monocytes 5.8, eosinophils 2.8, basophil 0.5, bands 8. ASSESSMENT AND PLAN: 1. Abdominal pain, likely related to ascending cholangitis. This patient had a laparoscopic cholecystectomy done 2 days ago and also they performed a cholangiogram that did not show any obstruction. Today the bilirubin is going down as well as the AST. ALT and alkaline phosphatase are a little bit higher. The patient is feeling a little bit better. We started covering this patient with meropenem. Infectious disease department, Dr. Sneed is following this patient. 2. Right lower lobe pneumonia. We will continue with the same management for now. He is on meropenem and yesterday we started this patient on doxycycline. 3. Elevated function tests likely related with #1 but we need to rule out other conditions like leptospirosis. This patient is getting doxycycline to cover this. Infectious disease department is following this patient. 4. Atrial fibrillation. This is getting better. Dr. Scottie Monroy is following this patient. 5. Fever and chills. This is getting better. He is having fever but not as frequent as before. Will continue to monitor. Will follow this patient closely.
[2016-05-08] MEDS: TOPROL XL PO SCH (21:13)
--- NOTE | 2016-05-08 22:57 | PROGRESS NOTE ---
DATE: 05/08/2016 PRESENT ILLNESS: The patient has a febrile illness. He has liver function tests that are elevated. He has what appears to be conjunctivitis. I am uncertain as to the cause of the patient's illness. MEDICATIONS: Currently he is on meropenem and doxycycline. PHYSICAL EXAMINATION: Vital Signs: Temperature earlier was 102, now it is 100.5, pulse 94, respirations 18, blood pressure 108/70. General: This is an ill-appearing middle-aged male. He is in no acute distress. Head, eyes, ears, nose, and throat: He can hear my spoken words and see near objects. His conjunctiva and sclerae are injected. There is no real drainage coming from his eyes at this time. Lungs: Clear to auscultation. Cardiovascular: Regular heart rate. Abdomen: Soft and nontender. Neurologic: Patient is alert. He can ambulate, he converses. There is no tremor. LAB AND X-RAY: Chest x-ray shows improvement in the left lower lobe infiltrate. The JAISON is negative. Liver function studies remain elevated. Creatinine 0.6. GFR is greater than 60. CBC shows a white count of 20,640, hemoglobin 13 and platelet count 287,000. ASSESSMENT AND PLAN: Patient has a febrile illness the etiology of which I am uncertain. For now, I would like to continue with his meropenem and doxycycline. I discussed with the family and Dr. Kong about transferring the patient. I think we should transfer the patient preferably to [facility]. PATIENT'S COMORBIDITY: I really could not find any definite comorbidity in this patient.
[2016-05-09] MEDS: NS IV SCH ×3 (01:21→17:44)
[2016-05-09] MEDS: NS 1,000 ML IV SCH ×2 (01:21→14:25)
[2016-05-09] MEDS: MERREM IV SCH ×3 (01:21→17:44)
[2016-05-09] MEDS: DUONEB (A & A) INH PRN ×6 (03:20→23:55)
[2016-05-09] MEDS: MORPHINE IV PRN ×3 (04:06→20:12)
[2016-05-09] MEDS: ZOFRAN IV PRN ×3 (04:06→20:12)
[2016-05-09 07:42] LABS: BASO% 0.5 % (0.0-0.8); EOS# 0.54 X1000 (0.0-0.7); EOS% 2.9 % (0.0-10.0); HEMATOCRIT 36.5 % (42.0-52.0); HEMOGLOBIN 12.9 g/dL (14.0-18.0); IMM GRAN# 0.83 X1000 (0.0-0.04); IMM GRAN% 4.4 % (0.0-0.5); LYMPH# 1.44 X1000 (1.2-3.4); LYMPH% 7.7 % (20.5-51.1); MANUAL DIFF NEEDED? YES; MCH 30.9 PG (27-31); MCHC 35.3 g/dL (33-37); MCV 87.5 FL (81-99); MONO# 1.32 X1000 (0.11-0.59); MPV 11.5 FL (7.4-10.4); NEUT% 77.5 % (42.2-75.2); PLT 301 X1000 (130-400); RBC 4.17 XMIL (4.7-6.1)
[2016-05-09 07:45] LABS: AGAP 10; ALBUMIN 2.5 g/dL (3.5-5.0); ALKALINE PHOSPHATASE 216 U/L (32-122); BUN 9 mg/dL (8-22); CALCIUM 7.8 mg/dL (8.8-10.2); CHLORIDE 102 mmol/L (98-107); COSMO 274; GOT 150 U/L (10-34); GPT 220 U/L (10-44); POTASSIUM 3.5 mmol/L (3.5-5.1); SODIUM 137 mmol/L (136-145); TCO2 25 mmol/L (25-35); TOTAL BILIRUBIN 3.06 mg/dL (0.20-1.00); TOTAL PROTEIN 6.1 g/dL (6.3-8.3)
--- NOTE | 2016-05-09 08:45 | Diag Imaging Result Document ---
PROCEDURE NAME: ABDOMEN/PELVIS W/WO CONTRAST - 05/07/2016 CT ABDOMEN PELVIS WITHOUT AND WITH CONTRAST: Exam is submitted for dictation on the morning of 05/09/2016. If there was a previous dictation, that dictation was lost. Images are obtained prior to and following intravenous contrast administration. There is oral contrast administered. A dose reduction protocol was used. Compared with 05/01/2016. FINDINGS: There has been development of small bilateral pleural effusions. There is some dependent atelectasis at the bilateral lung bases. There has been apparent development of a small pericardial effusion. There are postsurgical changes of interval cholecystectomy. There is a small amount of nonspecific low-density material at the cholecystectomy site. There is no discrete abscess identified. There is a small amount of free fluid at the posterior pelvis. There is no free air identified. There are no other acute abnormalities of the liver, spleen, adrenal glands, or pancreas identified. The bilateral kidneys enhance homogeneously. There is no hydronephrosis. There are nonspecific small retroperitoneal lymph nodes. There are no substantially enlarged lymph nodes identified. There is no evidence of bowel obstruction. The appendix has oral contrast in the lumen and shows no evidence of inflammation. There is no substantial bowel wall thickening identified. There is possibly nonspecific slight thickening of the brown of the hepatic flexure colon adjacent to the cholecystectomy site. IMPRESSION: 1. Small bilateral pleural effusions with adjacent dependent atelectasis. Small pericardial effusion. 2. Postsurgical changes of interval cholecystectomy. Small amount of nonspecific fluid at the cholecystectomy site. No discrete abscess identified. 3. Small amount of free fluid in posterior pelvis. No free air. 4. No bowel obstruction. No evidence of appendicitis. 5. Possible nonspecific slight thickening of brown of hepatic flexure colon adjacent to the cholecystectomy site. There is no other bowel wall thickening identified. The on-call radiologist provided preliminary results at 8:27 p.m. on 05/07/2016.
[2016-05-09 09:12] LABS: BANDS 4 % (0-1); EOS 8 % (1-10); HYPOCHROM 1+; LYMPHS 10 % (21-51)
--- NOTE | 2016-05-09 09:12 | PROGRESS NOTE ---
DATE: 05/09/2016 SUBJECTIVE: Mr. Jonah Ang is now postoperative day 5 from a laparoscopic cholecystectomy with intraoperative cholangiogram. He continues to feel poorly with fever, eye symptoms, and a cough. OBJECTIVE: His abdomen is soft. All trocar sites are healing well and it does not appear to be tender. Recent CT scan of his abdomen suggested some fluid in the gallbladder fossa, but otherwise appeared to be normal. I do not feel that he has any surgical complication. I think he continues to be ill from symptoms that occurred even a week prior to his admission. His heart rate is 96, blood pressure 125/75, O2 saturation 91% to 94% on room air. He is voiding without Chan. He has had fever, the highest being 100.5. He did have a bowel movement. His appetite is low. LABORATORIES: His white blood cell count has gone from 20 to 18. Electrolytes are all within normal limits. His liver function tests continue to be elevated. His total bilirubin is improving. It is now down to 3. AST is 150, ALT 220, and alkaline phosphatase is 216. ASSESSMENT AND PLAN: We are still trying to determine the etiology of his illness and there is even consideration of transferring him to [facility] for further evaluation. We will continue a GI soft diet status post laparoscopic cholecystectomy.
[2016-05-09] MEDS: PROTONIX IV SCH ×2 (09:28→21:34)
[2016-05-09] MEDS: DOXYCYCLINE PO SCH ×2 (09:28→21:33)
[2016-05-09] MEDS: SODIUM CHLORIDE 0.9% INJ SCH ×3 (09:28→21:34)
[2016-05-09] MEDS: TESSALON PO SCH ×3 (09:29→21:33)
[2016-05-09] MEDS: RYTHMOL PO SCH ×2 (09:29→21:33)
[2016-05-09] MEDS: TEARISOL OPH SOLUTION BOTH EYES SCH ×4 (09:39→21:34)
[2016-05-09] MEDS: CARAFATE LIQUID PO SCH ×3 (11:05→21:34)
[2016-05-09 13:39] LABS: HIV ANTIBODY SCREEN SEE COMMENTS (())
[2016-05-09 13:57] LABS: MYCOPLASMA PNEUMONIAE AB SEE COMMENTS (())
--- NOTE | 2016-05-09 15:40 | EKG Report ---
Test Performed on : 05/05/2016 8:47:21 PM Test Reason : 371A. Not ordered in [place] Blood Pressure : / mmHG Vent. Rate : 104 BPM Atrial Rate : 104 BPM P-R Int : 116 ms QRS Dur : 084 ms QT Int : 344 ms P-R-T Axes : 027 006 026 degrees QTc Int : 452 ms Sinus tachycardia. Otherwise normal ECG When compared with ECG of 05-MAY-2016 20:46, (Unconfirmed) Sinus rhythm. has replaced Atrial fibrillation. Vent. rate has decreased BY 66 BPM QRS axis shifted right Criteria for Inferior infarct are no longer present ST no longer depressed in Anterior leads Nonspecific T wave abnormality, improved in Inferior leads Nonspecific T wave abnormality no longer evident in Lateral leads Confirmed by Samantha COON, Varghese Sims ([id number]) on 05/10/2016 3:20:57 PM
--- NOTE | 2016-05-09 15:41 | EKG Report ---
Test Performed on : 05/05/2016 11:46:22 PM Test Reason : Blood Pressure : / mmHG Vent. Rate : 112 BPM Atrial Rate : 112 BPM P-R Int : 112 ms QRS Dur : 082 ms QT Int : 334 ms P-R-T Axes : 031 003 042 degrees QTc Int : 455 ms Sinus tachycardia. Otherwise normal ECG When compared with ECG of 05-MAY-2016 23:41, (Unconfirmed) No significant change was found Confirmed by Samantha COON, Varghese Sims ([id number]) on 05/10/2016 3:21:03 PM
--- NOTE | 2016-05-09 15:41 | EKG Report ---
Test Performed on : 05/05/2016 8:49:57 PM Test Reason : AFib. Not ordered in [place] Blood Pressure : / mmHG Vent. Rate : 183 BPM Atrial Rate : 208 BPM P-R Int : 000 ms QRS Dur : 078 ms QT Int : 180 ms P-R-T Axes : 000 008 239 degrees QTc Int : 314 ms Atrial fibrillation. with rapid ventricular response. with premature ventricular or aberrantly conduc piyush complexes. ST & T wave abnormality, consider anterolateral ischemia Abnormal ECG When compared with ECG of 05-MAY-2016 20:49, (Unconfirmed) Previous ECG has undetermined rhythm, needs review ST now depressed in Anterior leads Nonspecific T wave abnormality, worse in Inferior leads T wave inversion now evident in Anterolateral leads Confirmed by Samantha COON, Varghese Sims ([id number]) on 05/10/2016 3:21:01 PM
--- NOTE | 2016-05-09 15:42 | EKG Report ---
Test Performed on : 05/05/2016 11:58:21 PM Test Reason : afib Blood Pressure : / mmHG Vent. Rate : 110 BPM Atrial Rate : 110 BPM P-R Int : 114 ms QRS Dur : 082 ms QT Int : 344 ms P-R-T Axes : 019 -04 031 degrees QTc Int : 465 ms Sinus tachycardia. Otherwise normal ECG When compared with ECG of 05-MAY-2016 23:47, (Unconfirmed) Previous ECG has undetermined rhythm, needs review ST no longer depressed in Inferior leads ST no longer depressed in Anterolateral leads T wave inversion no longer evident in Lateral leads Confirmed by Samantha COON, Varghese Sims ([id number]) on 05/10/2016 3:21:06 PM
[2016-05-09 16:28] LABS: HEPATITIS PROFILE ACUTE SEE COMMENTS (())
--- NOTE | 2016-05-09 21:04 | DISCHARGE SUMMARY ---
ADMISSION DATE: 05/02/2016 DISCHARGE DATE: 05/09/2016 CONSULTATIONS: 1. Darryl Yoder M.D., General Surgery. 2. Scottie Monroy M.D., Cardiology. 3. Bjorn Figueroa M.D. Gastroenterology. 4. Franky Sneed M.D., Infectious Disease. PERTINENT PROCEDURES: 1. Abdomen and pelvis CT on 05/01 shows gallstones and polyps with questionable adjacent inflammation, fatty infiltration of the liver and small scattered mesenteric nodes. 2. Abdominal ultrasound on 05/02 shows a few gallstones and mild gallbladder wall thickening but no pericholecystic fluid suggestive of gallbladder wall polyps with the largest measuring up to 1 cm. 3. HIDA scan. Possibility of acute cholecystitis could not be excluded. 4. Cholangiogram. The common bile duct appeared normal in caliber. No discrete stricture or filling defect was identified. Contrast was seen flowing normally into the small bowel. 5. Laparoscopic cholecystectomy performed by Dr. Darryl Yoder. 6. Repeat abdomen and pelvis CT on 05/07/2016 shows small bilateral pleural effusions with adjacent dependent atelectasis and mild pericardial effusion and postsurgical changes with interval cholecystectomy, a small amount of nonspecific fluid at the colostomy site. No discrete abscess is identified. Small amount of free fluid in the posterior pelvis. No free air, no bowel obstruction, no evidence of appendicitis, possible nonspecific slight thickening of brown of the hepatic flexure colon adjacent to the cholecystectomy site. No interval bowel wall thickening at that time. DISCHARGE DIAGNOSES: 1. Acute cholecystitis with cholelithiasis and choledocholithiasis status post laparoscopic cholecystectomy with intraoperative cholangiogram performed by Dr. Yoder. The patient is still having elevation of liver enzymes, slowly improved. Liver biopsy is currently pending as well as a chronic liver disease workup. Ceruloplasmin antibody, mitochondrial antibody, and alpha 1 antitrypsin level also currently pending. 2. Febrile illness of unknown etiology. Infectious Disease is on board. The patient did have a repeat CT of the abdomen and pelvis. He will continue on doxycycline as well as meropenem. Per Infectious Disease, he would like to transfer the patient to [facility] given the uncertain etiology. 3. New onset atrial fibrillation. The patient has been on Rythmol. He does have a preserved EF. Cardiology's plan was if the patient remained asymptomatic they would likely try to discontinue the Rythmol. He has a 30 day cardiac event monitor to assess any further episodes of atrial fibrillation and follow up in our office in a month after discharge, and then initiate aspirin if SANTIAGO score was 0. However, patient is going to be transferred to [facility]. 4. Right lower lobe pneumonia. We have patient on meropenem as well as doxycycline. HOSPITAL COURSE: Briefly, Mr. Ang is a 46-year-old male without any significant past medical history who presented to the ED with a 5-day history of fever and diarrhea. He states that he had a cough that was nonproductive and just did not feel well. Over the past several days it seemed to be worsening. He was getting more congested and came to the ED where he was evaluated. Routine labs done in the ED showed abnormal LFTs. CT of the abdomen and pelvis were performed. It showed gallstones and polyps with questionable adjacent inflammation, fatty infiltration of the liver and small scattered mesenteric nodes. The patient also underwent an abdominal ultrasound that showed gallstones and mild gallbladder wall thickening, but no pericholecystic fluid. Could not exclude cholecystitis. GI was consulted in reference to patient's transaminitis and jaundice. They did order a HIDA scan for hepatotoxic drugs and then serial liver enzymes, avoided the use of any NSAIDs. Patient's HIDA scan showed the possibility of acute cholecystitis. Dr. Yoder with General Surgery saw the patient. Patient did undergo a laparoscopic cholecystectomy with cholangiogram. The cholangiogram did not show any obstruction. The patient was still complaining of abdominal pain. The patient still continued to have fevers. He was continued on levofloxacin as well as added Flagyl to his regimen. Patient also had new onset of atrial fibrillation for which Cardiology was consulted. He did have a preserved EF and SANTIAGO score of 0. The patient was started on Rythmol. He tolerated the Rythmol well. Cardiology's plan was to on the current course of therapy and likely have the patient follow up with Cardiology in a month after discharge. If he was asymptomatic try to discontinue and then use the 30 day event monitor to assess for any further episodes of atrial fibrillation. I make reference to the patient's continued liver functions being elevated as well as abdominal pain and his febrile illness of unknown etiology. The patient has been accepted to [facility] and will be transferred there. Dr. Franky Sneed was also brought on board. He changed his antibiotics to meropenem and doxycycline, and also requested that the patient be transferred to [facility]. This has been discussed with the patient and the family, they are agreeable. The patient is tolerating a GI soft diet. He has continued to have elevated white count. Today's white count is 18.78, hemoglobin 12, hematocrit 36, platelet count of 301,000. His total bilirubin today is 3.06, AST 150, ALT 220, alkaline phosphatase is 216. All blood and urine cultures have been negative. VITAL SIGNS ON THE DAY OF DISCHARGE: Temperature is 99.4 degrees, heart rate 97, respirations 21, blood pressure 125/75, O2 was 94% on room air. DISCHARGE DIET: GI soft with Ensure with each meal. DISCHARGE MEDICATIONS: Please see MAR as per Dr. Kong. FOLLOWUP: The patient is being discharged to [facility] related to febrile illness of unknown etiology. DISCHARGE TIME: Greater than 30 minutes. Dictated by SYL Clayton for Oracio Ray MD
[2016-05-09] MEDS: TOPROL XL PO SCH (21:34)
[2016-05-09] MEDS: TUSSIONEX LIQUID PO PRN (21:34)
[2016-05-10] MEDS: ZOFRAN IV PRN ×4 (01:17→23:47)
[2016-05-10] MEDS: MORPHINE IV PRN ×4 (01:17→23:47)
[2016-05-10] MEDS: NS 1,000 ML IV SCH ×4 (01:18→14:08)
[2016-05-10] MEDS: NS IV SCH ×3 (02:30→18:32)
[2016-05-10] MEDS: MERREM IV SCH ×3 (02:30→18:32)
[2016-05-10] MEDS: DUONEB (A & A) INH PRN ×6 (03:20→23:16)
[2016-05-10 07:39] LABS: BASO% 0.5 % (0.0-0.8); EOS# 0.59 X1000 (0.0-0.7); EOS% 3.5 % (0.0-10.0); HEMATOCRIT 37.1 % (42.0-52.0); HEMOGLOBIN 12.8 g/dL (14.0-18.0); IMM GRAN# 0.75 X1000 (0.0-0.04); IMM GRAN% 4.5 % (0.0-0.5); LYMPH# 1.73 X1000 (1.2-3.4); LYMPH% 10.3 % (20.5-51.1); MANUAL DIFF NEEDED? YES; MCH 30.6 PG (27-31); MCHC 34.5 g/dL (33-37); MCV 88.8 FL (81-99); MONO# 1.45 X1000 (0.11-0.59); MONO% 8.7 % (1.7-9.3); MPV 11.4 FL (7.4-10.4); NEUT% 72.5 % (42.2-75.2); PLT 314 X1000 (130-400); RBC 4.18 XMIL (4.7-6.1)
[2016-05-10 07:50] LABS: AGAP 11; ALBUMIN 2.7 g/dL (3.5-5.0); ALKALINE PHOSPHATASE 213 U/L (32-122); BUN 7 mg/dL (8-22); CALCIUM 7.9 mg/dL (8.8-10.2); CHLORIDE 99 mmol/L (98-107); COSMO 267; GOT 124 U/L (10-34); GPT 192 U/L (10-44); POTASSIUM 3.5 mmol/L (3.5-5.1); SODIUM 134 mmol/L (136-145); TCO2 24 mmol/L (25-35); TOTAL BILIRUBIN 2.72 mg/dL (0.20-1.00)
[2016-05-10 08:01] LABS: BANDS 1 % (0-1); EOS 2 % (1-10); LYMPHS 11 % (21-51); MONO 2 % (1-9)
[2016-05-10] MEDS: CARAFATE LIQUID PO SCH ×3 (08:39→20:35)
[2016-05-10] MEDS: RYTHMOL PO SCH ×2 (08:39→20:35)
[2016-05-10] MEDS: TESSALON PO SCH ×3 (08:40→20:35)
[2016-05-10] MEDS: TEARISOL OPH SOLUTION BOTH EYES SCH ×4 (08:40→20:36)
[2016-05-10] MEDS: DOXYCYCLINE PO SCH ×2 (08:40→20:35)
[2016-05-10] MEDS: SODIUM CHLORIDE 0.9% INJ SCH ×3 (09:16→20:35)
[2016-05-10] MEDS: PROTONIX IV SCH ×2 (09:16→20:35)
--- NOTE | 2016-05-10 13:35 | PROGRESS NOTE ---
DATE: 05/10/2016 SUBJECTIVE: This patient is feeling better today. He has been 24 hours without any fever. His reading also is better. At the moment of my evaluation, he was not using oxygen and the oxygen saturation is being above 92. He is still complaining of mild cough, eye dryness. He also states that he has been doing more physical activity. OBJECTIVE: Vital Signs: Temperature 98.5 degrees, pulse 88, respiratory rate 18, blood pressure 126/68, O2 saturation 93 on room air. HEENT: Head normocephalic. No trauma. PERRLA. Conjunctivae are pinkish, injected. Neck: Supple. No JVD. No masses. Central trachea. Chest: Decreased breath sounds mostly at the bases, bilateral lower lungs scattered rhonchi. No wheezing. Abdomen: Soft. Positive bowel sounds. Mild tenderness to palpation in the perioperative area. No signs of peritoneal irritation or bleed. Wounds are clean. He has some blister secondary to adhesive allergy. Extremities: No edema. No clubbing. No cyanosis. Neurological: The patient is alert, oriented x3. No focal deficits. Skin: Jaundiced. LABORATORY: WBC 16.7, hemoglobin 12.8, hematocrit 37.1, platelets 314,000. Segmented neutrophil 72.5%. Lymphocytes 10.3%. Bands 1. Sodium 134, potassium 3.5, chloride 99, bicarbonate 24, BUN 7, creatinine 0.6. Glucose 115. Calcium 7.9, total bilirubin 2.7. AST 124, ALT 192, alkaline phosphatase 213. ASSESSMENT AND PLAN: 1. Febrile illness. This patient has been without fever for the past 24 hours, he feels better. We will continue for now with the same antibiotics. Infectious Disease Department is following this patient. This patient has been accepted at [facility] for further treatment and management. 2. Possible ascending cholangitis. AST, ALT, alkaline phosphatase and bilirubin are getting slightly better. We will continue with the same treatment for now. Gastroenterology Department is following this patient. 3. Right lower lobe pneumonia. Continue with the same medications. He is on meropenem and doxycycline. 4. Elevated liver function tests likely secondary to ascending cholangitis but we need to rule out all other conditions as well that can cause an increase of LFTs. 5. Atrial fibrillation. Stable. Continue current treatment.
--- NOTE | 2016-05-10 16:18 | PROGRESS NOTE ---
DATE: 05/10/2016 Mr. Ang looks noticeably better today. He feels stronger and is walking around the nurse's station and his color looks better. OBJECTIVE: His heart rate is 92, blood pressure 126/68, O2 saturation 93%. His appetite is still marginal. He is voiding without difficulty. His white blood cell count is coming down. It went from 18 to 16. His hematocrit is 37%. Electrolytes are within normal limits. His total bilirubin is coming down on a daily basis. All liver function tests are slowly improving. His antitrypsin level was high.Abdomen: Soft. All his trocar sites are healing well. He is on IV Merrem and doxycycline. It must be noted that at the time of surgery his cholangiogram was normal and he had no evidence of any extrahepatic bile obstruction.
--- NOTE | 2016-05-10 16:37 | PROGRESS NOTE ---
DATE: 05/10/2016 SUBJECTIVE: The patient is resting in bed. He is feeling a little better. He is awaiting a bed at [facility]. He denies any new complaints. OBJECTIVE: Vitals: Temperature 98.5, pulse of 92, respiratory rate 18, blood pressure 126/68, satting 98%. General: Moderately well-nourished, lying in bed in no acute distress. HEENT: Pale conjunctiva, anicteric sclerae. Neck: Supple. Abdomen: Soft, mild discomfort in right upper quadrant. No rebound. No guarding. Extremities: No cyanosis, clubbing. Neurologic: Alert, awake, oriented. LABS: Hemoglobin and hematocrit is 12.8 and 37, white count of 16.76, platelet count of 314. Sodium 135, potassium 3.5, chloride 99, bicarbonate 20, anion gap 11, BUN of 7, creatinine 0.6, glucose 115, calcium 7.9, total bilirubin is 2.72. AST 124 and ALT 192, alkaline phosphatase is 213. Total protein 6, albumin of 2.7. Alpha 1 trypsin level of 3.5, which is high. JAISON is negative. Acute hepatitis panel is nonreactive. HIV is nonreactive. Mycoplasma IgG was positive suggesting past exposure. His urine for histoplasma is pending. Ceruloplasmin level is pending and ehrlichia level is pending. IMPRESSION/PLAN: 1. Febrile illness, but not afebrile for the last [address] follow [address] Naren delaney. 2. Elevated liver enzymes; these are trending down. The patient is status post cholecystectomy. Will continue to follow liver enzymes. 3. Followup on the chronic liver disease workup. His ceruloplasmin level is pending. 4. Right lower lobe pneumonia. He will continue on antibiotics, meropenem and doxycycline. 5. Atrial fibrillation, currently stable. The above plan discussed with the patient and family at bedside. I also discussed the plan of care with Dr. Sneed. [facility]
--- NOTE | 2016-05-10 18:24 | PROGRESS NOTE ---
DATE: 05/10/2016 PRESENT ILLNESS: The patient present illness consists of the abnormal liver function tests, fever, conjunctivitis. The exact cause of his illness is uncertain to me. It does appear that his illness had responded to the change in antibiotic treatment to meropenem and doxycycline. Exactly which of the antibiotics caused a change or if they both did or neither one did and it was just going to happen anyway that the patient got better, is uncertain to me. MEDICATIONS: The patient currently is on meropenem and doxycycline. This is day 3 of treatment with both those agents. PHYSICAL EXAMINATION: Vital Signs: Temperature is 98.6 degrees. Pulse 92, respirations 18, blood pressure 125/75. General: The patient does appear to be getting better. He is walking more. His appetite is coming back, his vision is improving. Head, eyes, ears, nose and throat: He can hear my spoken words and see near objects. His eyes to me seem less injected today. Lungs: Clear to auscultation. Cardiovascular: Regular heart rate. Abdomen: Soft and nontender. LABORATORY AND X-RAY: Patient's CBC today showed a white count which had come down to 16,760, hemoglobin 12.8 and platelet count of 314,000. Creatinine 0.6. GFR is greater than 60. Liver function studies are improving. The hepatitis panel was nonreactive. Titers for mycoplasma showed evidence of an infection in the past, but not a current infection. ASSESSMENT AND PLAN: 1. The patient is improving. For now I would like to continue both antibiotics. 2. Comorbidity: I could done establish a definite comorbidity in this patient.
[2016-05-10] MEDS: TOPROL XL PO SCH (20:35)
[2016-05-11] MEDS: NS 1,000 ML IV SCH ×2 (00:30→16:02)
[2016-05-11] MEDS: MERREM IV SCH ×3 (03:07→18:01)
[2016-05-11] MEDS: NS IV SCH ×3 (03:07→18:01)
[2016-05-11] MEDS: DUONEB (A & A) INH PRN ×5 (03:19→23:26)
[2016-05-11 07:49] LABS: BASO% 0.7 % (0.0-0.8); EOS# 0.51 X1000 (0.0-0.7); EOS% 3.1 % (0.0-10.0); HEMATOCRIT 39.1 % (42.0-52.0); HEMOGLOBIN 13.3 g/dL (14.0-18.0); IMM GRAN# 0.61 X1000 (0.0-0.04); IMM GRAN% 3.7 % (0.0-0.5); LYMPH# 1.78 X1000 (1.2-3.4); LYMPH% 10.8 % (20.5-51.1); MANUAL DIFF NEEDED? YES; MCH 30.6 PG (27-31); MCV 90.1 FL (81-99); MONO# 1.48 X1000 (0.11-0.59); MPV 11.4 FL (7.4-10.4); NEUT% 72.7 % (42.2-75.2); PLT 369 X1000 (130-400); RBC 4.34 XMIL (4.7-6.1)
[2016-05-11 08:12] LABS: AGAP 13; ALBUMIN 2.7 g/dL (3.5-5.0); ALKALINE PHOSPHATASE 218 U/L (32-122); BUN 8 mg/dL (8-22); CALCIUM 8.2 mg/dL (8.8-10.2); CHLORIDE 102 mmol/L (98-107); COSMO 278; GOT 81 U/L (10-34); GPT 169 U/L (10-44); POTASSIUM 3.7 mmol/L (3.5-5.1); SODIUM 139 mmol/L (136-145); TCO2 24 mmol/L (25-35); TOTAL BILIRUBIN 2.61 mg/dL (0.20-1.00); TOTAL PROTEIN 6.5 g/dL (6.3-8.3)
[2016-05-11 08:15] LABS: BANDS 1 % (0-1); EOS 3 % (1-10); LYMPHS 16 % (21-51); MONO 3 % (1-9)
[2016-05-11] MEDS: RYTHMOL PO SCH ×2 (10:13→20:35)
[2016-05-11] MEDS: PROTONIX IV SCH ×2 (10:13→20:36)
[2016-05-11] MEDS: SODIUM CHLORIDE 0.9% INJ SCH ×2 (10:13→20:36)
[2016-05-11] MEDS: DOXYCYCLINE PO SCH ×2 (10:13→20:35)
[2016-05-11] MEDS: TESSALON PO SCH ×3 (10:13→20:35)
[2016-05-11] MEDS: TEARISOL OPH SOLUTION BOTH EYES SCH ×4 (10:14→20:39)
[2016-05-11] MEDS: CARAFATE LIQUID PO SCH ×3 (10:14→20:35)
--- NOTE | 2016-05-11 12:13 | PROGRESS NOTE ---
DATE: 05/11/2016 SUBJECTIVE: The patient is currently resting in bed. He is feeling better. He denies any nausea or vomiting this morning. He denies any fever or chills. OBJECTIVE: Vital signs: Temperature 98.3, pulse rate 91, respiratory rate 13, and blood pressure 105/73. Saturation is 94% on room air. General Appearance: Moderately well- nourished, lying in bed in no acute distress. HEENT: Mild pallor, Anicteric sclerae. Mild pallor. Neck: Supple. Abdomen: Soft, nontender, and nondistended. Bowel sounds with mild discomfort in right upper quadrant. Extremities: No cyanosis or clubbing. Neurological: He is alert, awake, oriented. LABS: Hemoglobin and hematocrit is 13.3 and 39.1, white count 16.5, and platelet count 369. Sodium is 139, potassium 3.7, chloride 102, bicarb 24, anion gap 13, BUN 8, creatinine .07, glucose 129, calcium 8.2, total bili 2.61, AST 81, ALT 169, total protein 6.5, albumin 2.7, and alkaline phosphatase 218. His JAISON is negative. Acute hepatitis panel is negative. HIV is negative. Mycoplasma IgG is positive suggesting prior exposure. Negative IgM. IMPRESSION/PLAN: 1. Febrile illness, but afebrile for the last 24 hours, being followed by Dr. Franky Sneed. 2. Elevated liver enzymes. These are trending down. He is status-post cholecystectomy. We will continue to follow the liver enzymes, which are improving. We will follow up the ceruloplasmin level. 3. Right lower lobe pneumonia. He is currently on antibiotics, meropenem and doxycycline. 4. Atrial fibrillation, currently stable. 5. Leukocytosis, improving slightly. We will follow up on Ehrlichia antibody, histoplasma antigen in the urine, and mycoplasma hominis. I discussed the plan with the patient and the nurse. [facility]
[2016-05-11] MEDS: MORPHINE IV PRN ×2 (16:14→21:14)
[2016-05-11] MEDS: ZOFRAN IV PRN ×2 (16:14→21:14)
--- NOTE | 2016-05-11 17:30 | PROGRESS NOTE ---
DATE: 05/11/2016 SUBJECTIVE: Patient reports feeling better. Denies any fever during the last 48 hours. Sill complaining of mild cough. OBJECTIVE: Vital Signs: Temperature 98.4 degrees, heart rate 91, respiratory 15, blood pressure 112/80, O2 saturation 93% on room air. General Examination: This is a 46-year-old male, lying in bed, in no acute distress. HEENT: Head is normocephalic, atraumatic. Red conjunctivae. Neck: Supple. No JVD noted. No carotid bruits. No lymphadenopathy. No thyromegaly. Cardiovascular Exam: S1, S2 heard. No murmurs, gallops, or rubs. Regular rate and rhythm. Respiratory: Decreased breath sounds most predominant in the base with some scattered rhonchi. The patient is not using any accessory muscles or having work of breathing. Abdomen: Soft. Nontender to palpation. Bowel sounds are present. No organomegaly. Extremities: No clubbing, cyanosis, or edema. Peripheral pulses present in both legs. Neurological: Patient is alert and oriented x3. Moves 4 extremities. Skin: Jaundice. LABORATORY DATA: White cell count 16.52, hemoglobin 13.3, hematocrit 39.1, platelets 369,000 BMP unremarkable. Total bilirubin 2.61 with AST 81, ALT 161. ASSESSMENT AND PLAN: 1. Febrile illness. The patient has been afebrile the last 48 hours. Currently he is on meropenem and doxycycline. Infectious disease, Dr. Sneed following this patient. White cell count is still elevated. We will check CBC tomorrow. 2. Right lower lobe pneumonia. Patient on antibiotics as above. 3. Possible ascending cholangitis. GI is following this patient and they think that this patient just has at this time elevated liver enzymes that they are not able to figure out why. They are going to follow the ceruloplasmin level. In any case, they are following this patient. 4. Atrial fibrillation. Stable, rate control. 5. Leukocytosis. Still in the range of 16,000. We are following the results of antibody histoplasma.
[2016-05-11] MEDS: TOPROL XL PO SCH (20:35)
[2016-05-12] MEDS: NS 1,000 ML IV SCH ×2 (01:30→12:18)
[2016-05-12] MEDS: MORPHINE IV PRN (01:33)
[2016-05-12] MEDS: ZOFRAN IV PRN (01:33)
[2016-05-12] MEDS: MERREM IV SCH ×2 (03:04→09:03)
[2016-05-12] MEDS: NS IV SCH ×2 (03:04→09:03)
[2016-05-12] MEDS: DUONEB (A & A) INH PRN ×4 (03:28→16:11)
[2016-05-12] MEDS: CARAFATE LIQUID PO SCH ×2 (06:33→15:34)
[2016-05-12] MEDS: RYTHMOL PO SCH (08:55)
[2016-05-12] MEDS: PROTONIX IV SCH (08:56)
[2016-05-12] MEDS: DOXYCYCLINE PO SCH (08:56)
[2016-05-12] MEDS: TESSALON PO SCH ×2 (08:57→15:34)
[2016-05-12] MEDS: TEARISOL OPH SOLUTION BOTH EYES SCH ×2 (09:05→15:33)
[2016-05-12 13:00] LABS: AGAP 11; ALBUMIN 3.1 g/dL (3.5-5.0); ALKALINE PHOSPHATASE 253 U/L (32-122); BUN 10 mg/dL (8-22); CALCIUM 8.5 mg/dL (8.8-10.2); CHLORIDE 100 mmol/L (98-107); COSMO 270; GOT 83 U/L (10-34); GPT 164 U/L (10-44); POTASSIUM 4.1 mmol/L (3.5-5.1); SODIUM 135 mmol/L (136-145); TCO2 24 mmol/L (25-35); TOTAL BILIRUBIN 2.61 mg/dL (0.20-1.00); TOTAL PROTEIN 7.3 g/dL (6.3-8.3)
[2016-05-12 13:17] LABS: BASO% 1.1 % (0.0-0.8); EOS# 0.39 X1000 (0.0-0.7); EOS% 2.6 % (0.0-10.0); HEMATOCRIT 40.9 % (42.0-52.0); HEMOGLOBIN 13.7 g/dL (14.0-18.0); IMM GRAN# 0.43 X1000 (0.0-0.04); IMM GRAN% 2.8 % (0.0-0.5); LYMPH# 1.93 X1000 (1.2-3.4); LYMPH% 12.6 % (20.5-51.1); MANUAL DIFF NEEDED? NO; MCH 30.5 PG (27-31); MCHC 33.5 g/dL (33-37); MCV 91.1 FL (81-99); MONO# 1.34 X1000 (0.11-0.59); MONO% 8.8 % (1.7-9.3); MPV 11.3 FL (7.4-10.4); NEUT% 72.1 % (42.2-75.2); PLT 450 X1000 (130-400); RBC 4.49 XMIL (4.7-6.1)
[2016-05-12 14:00] VITALS: BP 122/70
--- NOTE | 2016-05-12 17:11 | PROGRESS NOTE ---
DATE: 05/12/2016 SUBJECTIVE: The patient has become afebrile and his white count has decreased to 15,280. The exact etiology of the patient's illness is uncertain. The patient is being discharged today on doxycycline 100 mg every 12 hours. His antibody for ehrlichia is nonreactive. His hepatitis panel is nonreactive. The urinary histoplasma antigen is negative. The mycoplasma hominis PCR was negative. The only outstanding lab is an antibody to leptospirosis which is pending. The patient is going home today. He is going to get adequate rest. He is going on a cruise with his in a few days. I advised the patient to stay away from all alcohol due to the fact that his liver function studies are elevated. His eyes are less injected and he is not having any purulent drainage from them. His white count is gradually decreasing. LABORATORY DATA: His last vital his lab tests show a creatinine of 0.8. His AST was 83. His ALT is 164. His alkaline phosphatase is 253. The bilirubin is down to 2.61. Patient creatinine is 0.8. [place] [address]. Hemoglobin 13.7, and platelet count is 450,000. The only lab test pending is serology for leptospirosis. ASSESSMENT/PLAN: Patient's vital signs of the show that he has not had any fever for at least 3 days. The patient has an appointment to see me in the office in 2 weeks. MTDD
--- NOTE | 2016-05-13 15:52 | PROGRESS NOTE ---
DATE: 05/12/2016 SUBJECTIVE: The patient is generally feeling better. His cough is better. He did not have any fever for 3 days. He says his urine looks much better. There are still questions about the cause of his original febrile illness associated with pneumoniae and increased LFTs. Current medication: Currently, he is on meropenem and doxycycline. PHYSICAL EXAMINATION: Vital Signs: Temperature 98.6 degrees, pulse 80, respirations 16, blood pressure 110/70, O2 saturation 98% HEENT: Mild scleral icterus. He still had some subconjunctival hemorrhage from the coughing, but it looks better. Neck: Supple. Trachea in midline. Heart: Normal first and second heart sounds. Lungs: Few crackles at the left base. Abdomen: Benign. Bowel sounds are present. Extremities: Unremarkable. Neurological: Awake and alert. No deficit. LABORATORY AND X-RAY: LFTs: Bilirubin is down to 2.0. Similarly, CBC is coming down; however, transaminases and alkaline phosphatase remain elevated. Creatinine is 0.6. ASSESSMENT AND PLAN: 1. Febrile illness. 2. Pneumonia. 3. Status post cholecystectomy. 4. Continued elevated liver function tests which are getting better. 5. Febrile illness is better. 6. Jaundice is better. I think I am more and more convinced that the patient most likely has mycoplasma pneumoniae. Unfortunately, we do not have any labs tests from [place] back. All the other tests on hepatitis were negative. I spent a lot of time talking to them. The patient is actually feeling confident that he is better clinically, according to him. I think it may be time to add macrolide because he is getting ready to be discharged soon and meropenem will be discontinued. We will continue doxycycline along with azithromycin. I will talk to Dr. Figueroa about starting him when he goes, and we will follow him closely and monitor his liver function tests.
--- NOTE | 2016-05-15 02:33 | DISCHARGE SUMMARY ---
ADMISSION DATE: 05/02/2016 DISCHARGE DATE: 05/12/2016 ADDENDUM: Mr. Ang was initially going to be discharged to [facility] related to febrile illness of unknown etiology, as well as acute cholecystitis with cholelithiasis and choledocholithiasis status post laparoscopic cholecystectomy with a an operative cholangiogram performed by Dr. Yoder. The patient was still having elevations of his liver enzymes. He was followed by infectious disease, continued on doxycycline, as well as meropenem. Dr. Sneed suggested that the patient be transferred to [facility] given the uncertain etiology and the slow trend of his liver enzymes. However over the next course of 24 hours awaiting a bed, the patient's liver enzymes continued to improve. He was feeling better and he had gone 24 hours without fever. We continued to monitor the patient for 2 more days. He still continued on both IV medications, meropenem and doxycycline. We are still following a ceruloplasmin level. GI continues to follow the patient. He has had urine culture with no growth. Two sets of blood cultures with no growth. His white count is down to 15. His liver enzymes on the day of discharge: Total bilirubin 2.61, AST 83, ALT 164, alkaline phosphatase was 253. They are also following Ehrlichia antibody histoplasma antigen in the urine and Mycoplasma hominis. The patient is being discharged today on p.o. doxycycline. He will need to follow up with Dr. Scottie Monroy in 5 weeks. They will send the patient a cardiac event monitor in reference to his atrial fibrillation. He will follow up with Dr. Franky Sneed in 1 week, as well as Dr. Figueroa. The patient can return to the ED for any worsening of symptoms. Dictated by SYL Clayton for nAdry Tracy MD
== END 2016-05-12 16:47 | disposition home or self-care (01) | DRG 417 ==
LOC: ED 18:05 → EDIPHOLD 05-02 02:23 → 3N 05-02 15:59
PROVIDERS: ATTEND Internal Medicine
PROC: 0FB14ZX Excision of Right Lobe Liver, Percutaneous Endoscopic Approach, Diagnostic (ICD-10-PCS; 2016-05-04)
PROC: BF101ZZ Fluoroscopy of Bile Ducts using Low Osmolar Contrast (ICD-10-PCS; 2016-05-04)
PROC: 0FT44ZZ Resection of Gallbladder, Percutaneous Endoscopic Approach (ICD-10-PCS; principal; 2016-05-04 16:50)
DX: K80.62 Calculus of gallbladder and bile duct with acute cholecystitis without obstruction (principal); J15.7 Pneumonia due to Mycoplasma pneumoniae; K76.0 Fatty (change of) liver, not elsewhere classified; K75.9 Inflammatory liver disease, unspecified; I48.91 Unspecified atrial fibrillation; K21.9 Gastro-esophageal reflux disease without esophagitis; R50.9 Fever, unspecified; Z85.820 Personal history of malignant melanoma of skin; Z82.49 Family history of ischemic heart disease and other diseases of the circulatory system; F17.220 Nicotine dependence, chewing tobacco, uncomplicated; T50.905A Adverse effect of unspecified drugs, medicaments and biological substances, initial encounter; H10.9 Unspecified conjunctivitis; Z79.899 Other long term (current) drug therapy
CPT/HCPCS: 36415; 71010; 71020; 74177; 74178; 74300; 76700; 78226; 80048; 80053; 80074; 81001; 82040; 82103; 82248; 82390; 82550; 82728; 83036; 83540; 83550; 83615; 83735; 83880; 84443; 84484; 85025; 85379; 85610; 85730; 86038; 86666; 86701; 86738; 87040; 87088; 87385; 87798; 87804; 88304; 88307; 88313; 93005; 93010; 93306; 94640; 94667; 94668; 94761; 96361; 96365; 96366; 96367; 96375; 96376; A9537; C1751; C9113; J0131; J0330; J0696; J1885; J2185; J2270; J2405; J2543; J2550; J3010; J3480; J7030; J7120; Q9966; Q9967; J2710; S0030; S0164